=== PATIENT | male | born 1940 | race Caucasian/White ===

== ENCOUNTER 2016-07-26 11:26 | Inpatient (IN) | payer OTHER ==
[~2016-07-26] VITALS: Ht 167.6 cm; Wt 75.0 kg
[~2016-07-26 11:26] MED LIST: AZIT250T94 PO; D-ME473S18 PO; IBUP-1542 PO; [UNRECOGNIZED DRUG - REMARK]
--- NOTE | 2016-07-26 15:32 | ERA ---
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 4 days ago he went to sleep felt some tingling on the right side of his body and awoke with slurred speech and weakness to his right upper and right lower extremity. Family also observed the right facial droop. His son finally convinced him to come to the hospital today. He complains of minimal residual weakness of the right upper and right lower extremity but still has mild slurred speech and right facial droop. Denies headache or visual changes. No neck or back pain. No dizziness or gait difficulties. Denies chest pain or palpitations. No shortness of breath or cough. No abdominal pain, nausea, vomiting, diarrhea or constipation. No URI symptoms, rhinorrhea or odynophagia. No fevers or chills. ROS All systems reviewed and are negative except as per history of present illness. Medications Home Meds Reported Medications Cholecalciferol (Vitamin D3) 1,000 Unit Capsule, 1000 UNIT PO DAILY, CAP 07/26/16 Carvedilol* (Carvedilol*) 6.25 Mg Tablet, 6.25 MG PO BID, #60 TAB 07/26/16 Losartan Potassium* (Losartan Potassium*) 50 Mg Tablet, 50 MG PO DAILY, TAB 07/26/16 Discontinued Reported Medications [unknown htn med] No Conflict Check 08/19/13 Discontinued Scripts Dextromethorphan Hb-Promethazine Hcl (Promethazine DM Syrup) 473 Ml Syrup, 5 ML PO Q6H Y for COUGH, #4 OZ Prov:DYLAN KRISHNA MD 04/18/16 Ibuprofen* (Motrin*) 600 Mg Tab, 600 MG PO Q6, #15 TAB Prov:DYLAN KRISHNA MD 04/18/16 Azithromycin* (Zithromax*) 250 Mg Tablet, 250 MG PO .ZPACK DIRECTED, #6 TAB TAKE 500 MG (2 TABS) THE FIRST DAY THEN 250 MG (1 TAB) DAYS 2-5 Prov:DYLAN KRISHNA MD 04/18/16 Allergies Allergies: Coded Allergies: No Known Drug Allergies (Verified Allergy, Unknown, 07/26/16) PMhx/Soc Reviewed in chart. As per HPI. Lives with family. History of Surgery: Yes (HERNIA REPAIR/ VASECTOMY) Anesthesia Reaction: No Hx Neurological Disorder: No Hx Respiratory Disorders: No Hx Cardiac Disorders: Yes (Coronary artery disease, NSTEMI status post PCI. Hypertension.) Hx Psychiatric Problems: Yes Hx Miscellaneous Medical Probl: No Hx Alcohol Use: No Hx Substance Use: No Hx Tobacco Use: No FmHx No stroke or cancer Physical Exam Vitals Vital Signs Date Time Temp Pulse Resp B/P Pulse Ox O2 Delivery O2 Flow Rate FiO2 07/26/16 16:25 98.9 86 20 161/88 100 Room Air 07/26/16 11:30 98.1 59 18 144/90 90 Physical Exam Const: Alert, no acute distress. Head: Atraumatic Eyes: Pupils equal reactive to light, extraocular movements are intact. Normal Conjunctiva ENT: Normal External Ears, Nose and Mouth. Pharynx is clear. Mucous members are moist. No erythema or exudate. Neck: Full range of motion. Nontender. Full range of motion. Carotids 2+ bilaterally without bruits. Resp: Breath sounds are equal and clear to auscultation bilaterally. No rales rhonchi or wheezes. Cardio: Regular rate and rhythm, no murmurs, gallops or rubs. Abd: Soft, non tender, non distended. Normal bowel sounds Skin: No petechiae or rashes Back: No midline or flank tenderness Ext: No cyanosis, or edema Neur: Awake and alert. Mild right facial droop. Cranial nerves II through and VIII through XII are otherwise intact. Motor and sensory equal bilaterally. No pronator drift. Psych: Normal Mood and Affect. Patient does not appear anxious or depressed. Result Diagram: 07/26/16 1530 07/26/16 1530 Results 24 hrs Laboratory Tests Test 07/26/16 15:30 07/26/16 15:51 White Blood Count 8.010^3/ul Red Blood Count 4.0910^6/ul Hemoglobin 14.3g/dl Hematocrit 41.2% Mean Corpuscular Volume 100.7fl Mean Corpuscular Hemoglobin 35.0pg Mean Corpuscular Hemoglobin Concent 34.7g/dl Red Cell Distribution Width 12.1% Platelet Count 32081^3/UL Mean Platelet Volume 10.2fl Neutrophils % 67.8% Lymphocytes % 21.7% Monocytes % 8.1% Eosinophils % 1.6% Basophils % 0.5% Nucleated Red Blood Cells % 0.0/100WBC Neutrophils # 5.410^3/ul Lymphocytes # 1.710^3/ul Monocytes # 0.710^3/ul Eosinophils # 0.110^3/ul Basophils # 0.010^3/ul Nucleated Red Blood Cells # 0.010^3/ul Prothrombin Time 13.2Sec Prothrombin Time Ratio 1.0 INR International Normalized Ratio 1.00 Activated Partial Thromboplast Time 38.5Sec Sodium Level 140mmol/L Potassium Level 4.1mmol/L Chloride Level 100mmol/L Carbon Dioxide Level 28mmol/L Anion Gap 16 Blood Urea Nitrogen 20mg/dl Creatinine 1.13mg/dl Glucose Level 99mg/dl Calcium Level 9.4mg/dl Total Bilirubin 0.6mg/dl Direct Bilirubin 0.00mg/dl Indirect Bilirubin 0.6mg/dl Aspartate Amino Transf (AST/SGOT) 26IU/L Alanine Aminotransferase (ALT/SGPT) 26IU/L Alkaline Phosphatase 78IU/L Troponin I < 0.012ng/ml Total Protein 7.9g/dl Albumin 4.4g/dl Globulin 3.50g/dl Albumin/Globulin Ratio 1.25 Bedside Glucose 82mg/dL Current Medications Medications (Trade) Dose Ordered Sig/Aníbal Route PRN Reason Start Time Stop Time Status Last Admin Dose Admin Aspirin (Aspirin) 325 mg ONCE ONCE PO 07/26/16 17:30 07/26/16 17:31 DC 07/26/16 17:51 Carvedilol (Coreg) 6.25 mg BID PO 07/26/16 21:00 UNV Cholecalciferol (Vitamin D) 1,000 unit DAILY PO 07/27/16 09:00 UNV Losartan Potassium (Cozaar) 50 mg DAILY PO 07/27/16 09:00 UNV Aspirin (Halfprin) 81 mg DAILY PO 07/27/16 09:00 UNV Docusate Sodium (Colace) 100 mg BID PO 07/26/16 21:00 UNV Famotidine (Pepcid) 20 mg DAILY PO 07/27/16 09:00 UNV Acetaminophen (Tylenol Tab) 650 mg Q6H PRN PO PAIN AND OR ELEVATED TEMP 07/26/16 18:30 UNV Enoxaparin Sodium (Lovenox) 40 mg DAILY SC 07/27/16 09:00 UNV Ondansetron HCl (Zofran Inj) 4 mg ER BRIDGE PRN IV NAUSEA AND/OR VOMITING 07/26/16 18:30 07/27/16 18:29 Acetaminophen (Tylenol Tab) 650 mg ER BRIDGE PRN PO MILD PAIN/FEVER 07/26/16 18:30 07/27/16 18:29 RHYTHM STRIP INTERPRETATION: Time: 15:40. Sinus bradycardia. Ventricular rate 55. Occasional PVCs. Indication: Weakness. EKG: TIME: 15:50. Sinus bradycardia with first-degree AV block. GA interval 244 ms. QRS duration normal. Left axis deviation. Q waves in leads V1 and V2. No acute ST segment elevation or depression. No ectopy. EP Interpretation : Abnormal EKG. IMAGING: PROCEDURE: Noncontrast CT Head. CLINICAL INDICATION: Stroke. TECHNIQUE: Noncontrast CT of the head was obtained. The administered radiation dose was CTDI vol = 44.03 mGy, DLP = 720.23 mGy-cm. One or more of the following dose reduction techniques were used: Automated exposure control, Adjustment of the mA and/or kV according to patient size, or Use of iterative reconstruction technique. COMPARISON: There are no similar studies submitted for comparison. FINDINGS: There is mild to moderate generalized cerebral volume loss. There is mild periventricular hypoattenuation suggesting chronic microvascular ischemic changes. There are moderate vascular calcifications within the intracranial carotid arteries. There is encephalomalacia and subcortical gliosis within the right inferior frontal lobe likely related to prior contusions. There is no loss of whelan-white differentiation to suggest acute territorial infarction. There is no acute intracranial hemorrhage or extra-axial fluid collection. There is no mass effect. No midline shift is identified. The orbits are within normal limits. The paranasal sinuses are well aerated. No destructive osseous lesion is identified. IMPRESSION: 1. No loss of whelan-white differentiation to suggest acute territorial infarction. Consider CTA of the head/neck or noncontrast MRI of the brain as clinically warranted. 2. No acute intracranial hemorrhage or extra-axial fluid collection. 3. Mild to moderate generalized cerebral volume loss. 4. Mild chronic microvascular ischemic changes. 5. Chronic right frontal lobe encephalomalacia/gliosis from prior contusion. Further findings as detailed above. RPTAT: PP .Arvin Ba MD, Date Time Electronically viewed and signed by .Arvin Ba MD, on 07/26/2016 16:20 .F/ PROCEDURE: Chest x-ray CLINICAL INDICATION: Stroke TECHNIQUE: Chest single view COMPARISON: 08/18/2013 FINDINGS: The heart is normal in size. The pulmonary vessels are normal in caliber. The lungs are clear. The costophrenic angles are sharp. The visualized bony thorax is unremarkable. IMPRESSION: No acute cardiopulmonary disease. RPTAT: HH .Daron Tadeo MD, Date Time Electronically viewed and signed by .Daron Tadeo MD, on 07/26/2016 15:59 .W/ Procedures/MDM DOCUMENTS REVIEWED: ED nurse, prior ED, prior records MEDICAL DECISION MAKIN-year-old male with a history of hypertension, CAD, NSTEMI s/p PCI in 2013 ambulatory to the ED for evaluation of slurred speech and right-sided weakness. Labile hypertension. No cardiac dysrhythmia. No encephalopathy. Permissive hypertension. CT reveals no evidence of acute infarct or bleed. Aspirin given. Admit to telemetry for further workup including MRI, neurology consultation, carotid Dopplers and cardiac echo. Counseled patient and family regarding diagnosis, diagnostic results and plan for admission. CALLS/CONSULTS: Time 17:30, Dr. Pierson, Recommends admission to telemetry. PATIENT CARE TRANSITIONED: Time: 17:30, Dr. Pierson. Departure Diagnosis: Primary Impression: CVA (cerebral vascular accident) Qualified Code: I63.9 - Cerebrovascular accident (CVA), unspecified mechanism Additional Impression: Uncontrolled hypertension Condition: Serious CHELSEY MARRUFO MD Jul 26, 2016 15:32
--- NOTE | 2016-07-26 16:00 | RADRPT ---
PROCEDURE: Chest x-ray CLINICAL INDICATION: Stroke TECHNIQUE: Chest single view COMPARISON: 08/18/2013 FINDINGS: The heart is normal in size. The pulmonary vessels are normal in caliber. The lungs are clear. Th e costophrenic angles are sharp. The visualized bony thorax is unremarkable. IMPRESSION: No acute cardiopulmonary disease. RPTAT: HH .Daron Tadeo MD, Date Time Electronically viewed and signed by .Daron Tadeo MD, on 07/26/2016 15:59 .W/
[2016-07-26] MEDS ORDERED: LOSA50TA6 PO (16:05)
[2016-07-26] MEDS ORDERED: CARV6.2579 PO (16:06)
[2016-07-26] MEDS ORDERED: CHOL10009 PO (16:07)
[2016-07-26 16:09] LABS: ADD SCAN DIFF NO
[2016-07-26 16:13] LABS: BASOPHILS % 0.5 % (0.0-2.0); EOSINOPHILS # 0.1 10^3/ul (0.0-0.5); EOSINOPHILS % 1.6 % (0.0-7.0); HEMATOCRIT 41.2 % (42.0-52.0); HEMOGLOBIN 14.3 g/dl (14.0-18.0); LYMPHOCYTES # 1.7 10^3/ul (0.8-2.9); LYMPHOCYTES % 21.7 % (15.0-51.0); MEAN CORPUSCULAR HGB CONC 34.7 g/dl (32.0-37.0); MEAN CORPUSCULAR VOLUME 100.7 fl (82.0-101.0); MEAN PLATELET VOLUME 10.2 fl (7.4-10.4); MONOCYTE # 0.7 10^3/ul (0.3-0.9); MONOCYTES % 8.1 % (0.0-11.0); NEUTROPHIL # 5.4 10^3/ul (1.6-7.5); NEUTROPHILS % 67.8 % (39.0-77.0); PLATELET COUNT 232 10^3/UL (140-415); RED BLOOD COUNT 4.09 10^6/ul (4.70-6.10); RED CELL DISTRIBUTION WIDTH 12.1 % (11.5-14.5)
--- NOTE | 2016-07-26 16:21 | RADRPT ---
PROCEDURE: Noncontrast CT Head. CLINICAL INDICATION: Stroke. TECHNIQUE: Noncontrast CT of the head was obtained. The administered radiation dose was CTDI vol = 44.03 mGy, DLP = 720.23 mGy-cm. One or more of the following dose reduction techniques were used: Au tomated exposure control, Adjustment of the mA and/or kV according to patient size, or Use of iterat jennifer reconstruction technique. COMPARISON: There are no similar studies submitted for comparison. FINDINGS: There is mild to moderate generalized cerebral volume loss. There is mild periventricular hypoattenuation suggesting chronic microvascular ischemic changes. Th ere are moderate vascular calcifications within the intracranial carotid arteries. There is encephal omalacia and subcortical gliosis within the right inferior frontal lobe likely related to prior cont usions. There is no loss of whelan-white differentiation to suggest acute territorial infarction. There is no acute intracranial hemorrhage or extra-axial fluid collection. There is no mass effect. No midline shift is identified. The orbits are within normal limits. The paranasal sinuses are well aerated. No destructive osseous lesion is identified. IMPRESSION: 1. No loss of whelan-white differentiation to suggest acute territorial infarction. Consider CTA of t he head/neck or noncontrast MRI of the brain as clinically warranted. 2. No acute intracranial hemorrhage or extra-axial fluid collection. 3. Mild to moderate generalized cerebral volume loss. 4. Mild chronic microvascular ischemic changes. 5. Chronic right frontal lobe encephalomalacia/gliosis from prior contusion. Further findings as detailed above. RPTAT: PP .Arvin Ba MD, Date Time Electronically viewed and signed by .Arvin Ba MD, on 07/26/2016 16:20 .F/
[2016-07-26 16:25] LABS: PROTIME 13.2 Sec (12.2-14.2)
[2016-07-26 16:26] LABS: PARTIAL THROMBOPLASTIN TIME 38.5 Sec (25.0-35.0)
[2016-07-26 16:47] LABS: ALBUMIN 4.4 g/dl (3.3-4.9); CHLORIDE 100 mmol/L (97-110); SODIUM 140 mmol/L (135-144)
[2016-07-26 16:48] LABS: POTASSIUM 4.1 mmol/L (3.5-5.1)
[2016-07-26 16:50] LABS: ALBUMIN/GLOBULIN RATIO 1.25; ALKALINE PHOSPHATASE 78 IU/L (42-121); ANION GAP 16 (8-16); ASPARTATE AMINO TRANSFERASE 26 IU/L (15-46); BILIRUBIN,INDIRECT 0.6 mg/dl (0-1.1); BILIRUBIN,TOTAL 0.6 mg/dl (0.2-1.3); BLOOD UREA NITROGEN 20 mg/dl (7-20); CARBON DIOXIDE 28 mmol/L (21-31); CREATININE 1.13 mg/dl (0.61-1.24); TOTAL PROTEIN 7.9 g/dl (6.1-8.1)
[2016-07-26 16:51] LABS: ALANINE AMINOTRANSFERASE 26 IU/L (13-69); CALCIUM 9.4 mg/dl (8.4-10.2); GLUCOSE 99 mg/dl (70-220)
[2016-07-26 17:08] LABS: TROPONIN-I < 0.012 ng/ml (0.00-0.12)
[2016-07-26] MEDS ORDERED: ASPIRIN 325 MG TAB PO ONE (17:30)
[2016-07-26 18:10] VITALS: TEMP 97.7
[2016-07-26] MEDS ORDERED: ONDANSETRON 4 MG INJ IV PRN (18:30)
[2016-07-26] MEDS ORDERED: ACETAMINOPHEN 325 MG TAB PO PRN ×2 (18:30)
--- NOTE | 2016-07-26 19:05 | RADRPT ---
PROCEDURE: US Carotids. CLINICAL INDICATION: Stroke TECHNIQUE: Multiple sonographic of the carotid arteries were obtained utilizing whelan scale imaging . Color and Doppler imaging was performed. The images were reviewed on a PACS workstation. COMPARISON: No prior studies are available for comparison. FINDINGS: RIGHT: CCA53 cm/sec Prox ICA38 cm/sec Mid ICA31 cm/sec Dist ICA33 cm/sec ECA44 cm/sec ICA/CCA:0.7 LEFT: CCA47 cm/sec Prox ICA47 cm/sec Mid ICA60 cm/sec Dist ICA66 cm/sec ECA63 cm/sec ICA/CCA:1.4 Antegrade flow is seen within the vertebral arteries bilaterally. There is mild partially calcified carotid bulb plaque is present.. There is no evidence for hemodynamically significant stenosis or o cclusion is identified. IMPRESSION: 1. Mild bilateral carotid bulb plaque without evidence for hemodynamically significant stenosis - v alidated velocity measurements with angiographic measurements, velocity criteria are extrapolated fr om diameter data as defined by the Society of Radiologists in Ultrasound Consensus Conference Radiol ogy 2003; 229;340-346. This study does indirectly reference the measurement of the distal ICA diame ter as the denominator for stenosis measurement. 2. Antegrade flow seen within the vertebral arteries bilaterally. RPTAT: HMVK .Timothy Gomez MD, Date Time Electronically viewed and signed by .Timothy Gomez MD, MD on 07/26/2016 19:05 .K/
[2016-07-26 19:45] VITALS: BP 186/96; PULSE 54; RESP 18
[2016-07-26 20:07] VITALS: PULSE 54
[2016-07-26 21:00] VITALS: BP 186/96; RESP 18
[2016-07-26] MEDS: LOSARTAN 50 MG TAB PO SCH (21:00)
[2016-07-26] MEDS: DOCUSATE SODIUM 100 MG CAP PO SCH (21:00)
[2016-07-26] MEDS ORDERED: HYDROCHLOROTHIAZIDE 25 MG TAB PO ONE (21:00)
[2016-07-26 21:32] VITALS: BP 177/91
[2016-07-26 21:46] VITALS: Ht 167.6 cm; Wt 75.0 kg
--- NOTE | 2016-07-26 23:35 | HP ---
DATE OF ADMISSION: 07/26/2016 PRESENTING COMPLAINT: Slurred speech and right-sided weakness. HISTORY OF PRESENTING COMPLAINT: Mr. Holland Samson is a 76-year-old male, who was brought in today b y his son because he had an episode of slurred speech about 3 days ago, that associated with right-s ided facial weakness and right upper extremity numbness and weakness. The patient tells me that his symptoms lasted just about 24 hours and then completely resolved, and at this point, he reports nubia t he is completely back to his baseline. He is actually considering leaving the hospital without be ing admitted against medical advice. He tells me at this time, he has no symptoms and he is doing v omero well. I did explain to him that we have to admit him for a stroke workup, however. The patient reports that he had a similar episode about 4 years ago, and at that time his blood pressure was fo und to be elevated, and his blood pressure medications were adjusted, and he reports feeling better since. The patient feels that this episode is also secondary to the same and is requesting for us t o just adjust his blood pressure meds and he thinks he will be fine after that. PAST MEDICAL HISTORY: Positive for: 1. Coronary artery disease. 2. History of non-ST elevation myocardial infarction, status post percutaneous coronary interventio n. 3. Hypertension. PAST SURGICAL HISTORY: Positive for hernia repair and vasectomy. ALLERGIES: HE HAS NO KNOWN DRUG ALLERGIES. SOCIAL HISTORY: The patient denies alcohol, tobacco, or illicit drug use. FAMILY HISTORY: Noncontributory. REVIEW OF SYSTEMS: I did perform a 12-point review of systems, and basically pertinent findings are as noted in the HPI. PHYSICAL EXAMINATION VITAL SIGNS: Temperature 97.7, pulse 88, respirations 16, blood pressure 131/101, saturations 100% on room air. GENERAL: He is alert, he is oriented, he is comfortable, in no distress. HEENT: Head is normocephalic. There is a mild right-sided facial deficit, but he says this is sweatband drummer jose. Pupils were equal and reactive. Mucous membranes are moist. Posterior pharynx was clear of e rythema and exudate. NECK: Supple. CHEST: Clear to auscultation. CARDIOVASCULAR: S1 and 2 without added sounds or murmurs. ABDOMEN: Soft, nontender, nondistended, with normoactive bowel sounds. EXTREMITIES: The patient has no lower-extremity edema. NEUROLOGIC: There are no focal deficits, except a mild right facial droop. SKIN: Devoid of rash or jaundice. LABORATORY VALUES: Basically, a complete metabolic profile was completely normal. Troponin was neg ative x1. Hematology: He had a low hematocrit and a mildly-elevated MCH. Coag profile is unremark able. EKG showed sinus bradycardia with first-degree AV block with a rate of 53. IMAGING: He had a chest x-ray that showed no acute cardiopulmonary disease. CT scan of the brain s howed no loss of whelan-white differentiation to suggest acute territorial infarction, chronic right f rontal lobe encephalomalacia from prior contusion, [id number] generalized cerebral volume loss , mild chronic microvascular ischemic changes. ASSESSMENT: 1. Acute transient ischemic attack, with what looks like a second episode. 2. Uncontrolled hypertension, which precipitated #1. 3. History of coronary artery disease status post percutaneous coronary intervention in the past. 4. Mild bradycardia. PLAN OF CARE: 1. To admit for a stroke workup and optimization of his overall medical status. 2. Rule out acute coronary syndrome, obtain 2D echo, obtain carotid Doppler, check a lipid profile, TSH, hemoglobin A1c. We will adjust his blood pressure medicines for blood pressure control, add aspirin to his regimen, and use Lovenox and Pepcid for DVT prophylaxis. Further interventions will depend on his clinical course. For further information and clarification , please review the patient's chart and my orders. Dictated By: SHLOMO ARANDA MD, BA/ZHANNA Conf#: [id number] DID#: [id number]
[2016-07-26 23:55] VITALS: BP 166/88; RESP 18
--- NOTE | 2016-07-26 23:58 | RADRPT ---
PROCEDURE: MR Brain without contrast. CLINICAL INDICATION: CVA TECHNIQUE: An MRI of the brain was performed on a 1.5 magnolia scanner utilizing the following sequen domonique: Sagittal T1 weighted, axial T2 weighted, axial FLAIR, coronal GRE, and axial diffusion weighted with ADC mapping. COMPARISON: None FINDINGS: 9 mm focus of restricted diffusion within the left paramedian augie compatible with acute / early sub acute ischemic infarction . No significant mass effect or evidence of hemorrhagic transformation. Multiple sub centimeter foci of signal loss on gradient echo T2* weighted sequences within the augie, midbrain, left external capsule, and bilateral thalami and basal ganglia compatible with hemosideri n deposition/blood degradation products suggestive of multiple cavernous angiomas. Patchy periventricular and subcortical white matter T2 signal hyperintensity foci most compatible wi th sequelae of chronic microvascular ischemic injury. Prominence of the ventricles and subarachnoid spaces compatible with moderate cerebral and cerebellar volume loss . The posterior fossa contents, brainstem, seventh - eighth cranial nerve complexes, pituitary axis, o rbits, paranasal sinuses, and mastoid air cells are unremarkable. Normal flow voids are visible in the proximal intracranial arteries and dural sinuses, indicating pa tency. IMPRESSION: 1. 9 mm focus of restricted diffusion within the left paramedian augie compatible with acute / early subacute ischemic infarction. No significant mass effect, edema, or hemorrhagic transformation. 2. Multiple sub centimeter foci of signal loss on gradient echo and T2-weighted sequences and augie, midbrain, left external capsule, and bilateral thalami and basal ganglia suggestive of multiple cav ernous angiomas. 3. Moderate chronic microvascular ischemic changes in the deep white matter central cerebral and ce rebellar volume loss. RPTAT:AAJJ Physician Luis Date Time Electronically viewed and signed by Physician Luis on 07/26/2016 23:57 LINDA/
[2016-07-27] VITALS (10 sets, daily range): BP systolic 149–186; BP diastolic 85–99; PULSE 53–77; RESP 17–20
[2016-07-27 00:59] LABS: CREATINE KINASE 118 IU/L (23-200)
[2016-07-27 01:15] LABS: CK-MB 1.66 ng/ml (0.0-2.4); TROPONIN-I < 0.012 ng/ml (0.00-0.12)
[2016-07-27] MEDS: DOCUSATE SODIUM 100 MG CAP PO SCH ×2 (08:27→22:10)
[2016-07-27] MEDS: LOSARTAN 50 MG TAB PO SCH (08:28)
[2016-07-27] MEDS: FAMOTIDINE 20 MG TAB PO SCH (08:28)
[2016-07-27] MEDS: ASPIRIN (EC) 81 MG TAB PO SCH (08:28)
[2016-07-27] MEDS: CHOLECALCIFEROL 1,000 UNIT TAB PO SCH (08:28)
[2016-07-27] MEDS: ENOXAPARIN 40 MG/0.4 ML SYG SC SCH (08:34)
[2016-07-27 10:32] LABS: ADD SCAN DIFF NO
[2016-07-27] MEDS: ATORVASTATIN 40 MG TAB PO SCH (10:43)
[2016-07-27] MEDS: HYDROCHLOROTHIAZIDE 25 MG TAB PO SCH (10:43)
[2016-07-27 10:46] LABS: BASOPHILS % 0.3 % (0.0-2.0); EOSINOPHILS # 0.1 10^3/ul (0.0-0.5); EOSINOPHILS % 1.3 % (0.0-7.0); HEMATOCRIT 40.5 % (42.0-52.0); HEMOGLOBIN 13.8 g/dl (14.0-18.0); LYMPHOCYTES # 1.3 10^3/ul (0.8-2.9); LYMPHOCYTES % 22.6 % (15.0-51.0); MEAN CORPUSCULAR HEMOGLOBIN 33.9 pg (29.0-33.0); MEAN CORPUSCULAR HGB CONC 34.1 g/dl (32.0-37.0); MEAN CORPUSCULAR VOLUME 99.5 fl (82.0-101.0); MEAN PLATELET VOLUME 10.2 fl (7.4-10.4); MONOCYTE # 0.5 10^3/ul (0.3-0.9); MONOCYTES % 7.7 % (0.0-11.0); NEUTROPHILS % 68.1 % (39.0-77.0); PLATELET COUNT 214 10^3/UL (140-415); RED BLOOD COUNT 4.07 10^6/ul (4.70-6.10); WHITE BLOOD COUNT 5.9 10^3/ul (4.8-10.8)
[2016-07-27 11:08] LABS: TROPONIN-I 0.016 ng/ml (0.00-0.12)
[2016-07-27 11:09] LABS: CK-MB 1.81 ng/ml (0.0-2.4)
[2016-07-27 11:50] LABS: CHOL/HDL RATIO 2.6 RATIO
[2016-07-27] MEDS ORDERED: LOSARTAN 25 MG TAB PO ONE (12:30)
[2016-07-27 12:31] LABS: CALCIUM 9.3 mg/dl (8.4-10.2); CREATININE 1.18 mg/dl (0.61-1.24); MAGNESIUM 1.9 mg/dl (1.7-2.5); POTASSIUM 3.7 mmol/L (3.5-5.1)
[2016-07-27 13:20] LABS: THYROID STIMULATING HORMONE 1.59 MIU/L (0.465-4.680)
--- NOTE | 2016-07-27 13:20 | DS ---
DATE OF ADMISSION: 07/26/2016 DATE OF DISCHARGE: 07/27/2016 PRESENTING COMPLAINT: Right-sided facial droop and slurred speech. FINAL DIAGNOSES: 1. 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 The patient has no gross foc al deficits. 2. Multiple cavernous angiomas of incidental finding. 3. Hypertension with improved control. 4. Chronic normocytic anemia. 5. History of coronary artery disease status post PCI in the past. CONSULTS ON THE CASE: Neurologist, Dr. Robert Mrain, is yet to review patient, but patient w ould not be discharged until he has been reviewed and cleared by neurology. INTERVENTIONS: The patient had the followin. Chest x-ray that showed no acute cardiopulmonary disease. 2. A CT scan of the brain that showed no acute territorial infarction, no acute intracranial hemorr best, mild to moderate generalized cerebral volume loss, mild chronic microvascular ischemic changes and chronic right frontal lobe encephalomalacia/gliosis. 3. Then, the patient went on to have a brain MRI that showed a 9 mm focus compatible with an acute ischemic infarction in the left paramedian augie, multiple subcentimeter foci of signal loss the augie , midbrain, left external capsular, bilateral thalami and basal ganglia, suggestive of multiple cave rnous angiomas and moderate chronic microvascular ischemic changes. 3. The patient had a carotid Doppler study that showed mild carotid bulb plaque without evidence of hemodynamically significant stenosis. 4. He also had A 2D echo has been done, but again the official report is pending. SHORT HOSPITALIZATION COURSE: Full details of this patient's admission is in the chart for review. In summary, he came into the ER, brought in by his family, with report of slurred speech and right- sided facial droop and weakness 3 days prior to presentation. The patient did not want to come to [facility], but was brought in by his family and as such every point throughout his hospitalizatio n was constantly requesting to be discharged, which is again the same as of this morning. He report s doing well, having no focal deficits having no symptoms. He has no new complaints. He is actuall y yet to be seen by the neurologist. Also, his echocardiogram is pending. His lipid profile was al so pending as well as a urinalysis. The patient is not cleared for discharge until these have been reviewed. Other than that, he seems to be stable condition. Blood pressure is better controlled an d if no further contraindications, the patient will be discharged home in safe and stable condition. DISCHARGE MEDICATIONS: As follows: 1. His Coreg was switched to metoprolol at a dose of 25 mg p.o. b.i.d. because of bradycardia. 2. His Losartan was increased to 100 mg p.o. daily. 3. Hydrochlorothiazide was also added to his regimen for better blood pressure control. 4. He was also started on aspirin 81 mg daily. 5. He was started on Lipitor 40 mg p.o. at bedtime. If any new findings or changes are made, an addendum will be made to this dictation. Other than nubia t, the patient will be discharged in stable condition if cleared by neurology on a low cholesterol, low fat diet, to follow up as soon as possible with his primary care physician. Regarding the cavernous malformations on the CAT scan, the patient is recommended to undergo serial brain imaging yearly if recommended by his primary doctor to closely monitor this. This was reviewe d over the telephone with neurosurgeon, Dr. Mukesh Palumbo. I have spoken with the patient in [facility]. I will return to speak with the patient's family and will also review the patient again once he has been seen by neurology and all his labs are complete. So far, time spent on discharge planning has been more than 45 minutes. For further information and clarification, please review the patient's chart. Dictated By: SHLOMO ARANDA MD, BA/ZHANNA Conf#: [id number] DID#: [id number]
--- NOTE | 2016-07-27 13:23 | RADRPT ---
Echocardiogram Report Patient Name: TATYANA ZHOU Gender: Male Date: 1940 Study Date: 27-Jul-2016 Hotel Assistant Manager: Brant Holman [facility] Location: 506 Ref. Physician: SHLOMO ARANDA Quality: Good Procedures: Transthoracic echocardiogram with complete 2D, M-Mode, and doppler examination. Indications: Cerebrovascular Accident. 2D/M Mode Doppler Measurement Value Normal Ranges Measurement Value Normal Ranges LVIDd 2D 4.5 3.5 - 5.6 cm AV Peak Florencio 1.2 m/sec LVIDs 2D 3.2 2.1 - 4.1 cm AV Peak PG 5.7 mmHg LVPWd 2D 0.9 0.6 - 1.1 cm LVOT Peak Florencio 0.7 m/sec IVSd 2D 1.0 0.6 - 1.1 cm LVOT Peak PG 1.9 mmHg AoR Diam 2D 3.3 2.0 - 3.7 cm MV E Peak Florencio 0.4 m/sec EDV 2D 91.6 cm3 MV A Peak Florencio 0.7 m/sec ESV 2D 31.4 cm3 MV E/A 0.6 LA Dimen 2D 4.0 2.3 - 4.0 cm MV Decel Time 613 msec MV Decel [place] 1 MV E/A 0.6 TR Peak Florencio 2.2 m/sec TR Peak PG 19.8 mmHg RVSP 23.0 mmHg Findings Left Ventricle: Normal left ventricular systolic function. Normal left ventricular cavity size. Normal left ventricular wall thickness. Ejection fraction is visually estimated at 60 %. Tissue Doppler/Mitral Doppler indices are consistent with impaired relaxation (Stage I diastolic dysfunction). Right Ventricle: Normal right ventricular size. Normal right ventricular systolic function. Left Atrium: Upper limit of normal left atrial size. Right Atrium: The right atrium is normal in size. Mitral Valve: Mitral valve leaflets appear mildly thickened. Trace mitral regurgitation. Aortic Valve: No significant aortic stenosis or insufficiency. Aortic cusps appear mildly calcified. Trace aortic valve regurgitation. Tricuspid Valve: Normal appearance and function of the tricuspid valve with trace physiologic regurgitation. Estimated peak PA systolic pressure 23 mmHg. Pulmonic Valve: Normal pulmonic valve appearance. Pericardium: Normal pericardium with no significant pericardial effusion. Aorta: Normal aortic root. IVC: Normal size and normal respiratory collapse consistent with normal right atrial pressure. Conclusions 1.Normal left ventricular systolic function. Normal left ventricular cavity size. Normal left ventricular wall thickness. Ejection fraction is visually estimated at 60 %. Tissue Doppler/Mitral Doppler indices are consistent with impaired relaxation (Stage I diastolic dysfunction). 2.Normal right ventricular size. Normal right ventricular systolic function. 3.Upper limit of normal left atrial size. 4.The right atrium is normal in size. 5.No significant valvular stenosis or regurgitation seen. 6.Normal pericardium with no significant pericardial effusion. Electronically Signed By: Timothy Thompson 27-Jul-2016 13:21:36 -0700 Patient Name: TATYANA ZHOU Study Date: 27-Jul-2016 [id number]
[2016-07-27] MEDS ORDERED: METO-448 PO (14:30)
[2016-07-27] MEDS ORDERED: ATOR40TA68 PO (14:30)
[2016-07-27] MEDS ORDERED: DOCU-216 PO (14:30)
[2016-07-27] MEDS ORDERED: HYD25 PO (14:30)
[2016-07-27] MEDS ORDERED: LOSA100T7 PO (14:30)
[2016-07-27] MEDS ORDERED: ASPI-664 PO (14:30)
--- NOTE | 2016-07-27 14:32 | PDOCDIS ---
Discharge Instructions DIAGNOSIS Discharge Diagnosis: Acute stroke CONDITION Patient Condition: Stable HOME CARE INSTRUCTIONS: Diet Instructions: Low Fat /Cholesterol ACTIVITY: Activity Restrictions: Slowly Increase Activity Rest between Activity FOLLOW UP/APPOINTMENTS Appointments Followup with your primary doctor within the next 1 weeks. If you don't have one please let someone know, we can give you resources that may help you pick one. You may also call your insurance company to assign one to you. Review your medication list with your nurse before leaving and if you need new prescriptions please let your nurse know. I may have made changes to your home medications or given you new prescriptions , please let your primary doctor know as well. Stay compliant with your medications and report any side effects to your PCP or pharmacist. Return to the ER if you have any concerns and cannot reach your doctors or call your insurance company, they usually have a nurse that can help you. REFERRALS Other Referrals Name, Degree: Rob Enriquez MD Specialty: Ear Nose Throat Comments: Office Address: [address] [place] [address] Office Office Area Secretary: Status: Courtesy Department: Surgery ENT SHLOMO ARANDA Jul 27, 2016 14:32
--- NOTE | 2016-07-27 20:42 | CONS ---
DATE OF ADMISSION: 07/26/2016 DATE OF CONSULTATION: 07/27/2016 TYPE OF CONSULTATION: Neurology. Thank you, Dr. Montejo, for your kind referral for evaluation of CVA. HISTORY OF PRESENT ILLNESS: The patient is a 76-year-old gentleman with history of coronary artery disease, myocardial infarction, as well as hypertension, who about 3 days ago had an episode of slur red speech with right facial weakness and right upper extremity weakness and numbness. The patient' s symptoms have resolved. ALLERGIES: NONE. SOCIAL HISTORY: No alcohol, tobacco, drug use. FAMILY HISTORY: Noncontributory. The patient's MRI of the brain shows presence of acute ischemic lacunar in the left augie about 9 mm in size, also multiple subcentimeter foci of signal loss on gradient echo and T2 weighted sequences in augie, midbrain, external capsule, bilateral thalami, and basal ganglia, suggestive of multiple sm all cavernous angiomas. Carotid ultrasound did not show any hemodynamically significant stenosis. The patient's labs show essentially normal CBC, comprehensive metabolic panel, normal B12, TSH, LDL 83, cholesterol 157, normal PT 13, PTT 38. Patient had an EKG. It shows sinus rhythm. Echocardiogram showed ejection fraction of 60. MEDICATIONS: Currently, the patient is on: 1. Losartan. 2. Lopressor. 3. Hydrochlorothiazide. 4. Lipitor 40 mg. 5. Vitamin D. 6. Aspirin. 7. Pepcid. 8. Lovenox for DVT prevention. REVIEW OF SYSTEMS: All pertinent positives included in the above history of present illness. PHYSICAL EXAMINATION: VITAL SIGNS: Today, Temperature 97.9, pulse 77, respirations 19, blood pressure 186/99. GENERAL: Not in acute distress, lying in bed. HEENT: Normocephalic, atraumatic head. NECK: No carotid bruits. No thyromegaly. LUNGS: Clear to auscultation bilaterally. CARDIAC: Normal cardiac rhythm and sounds. ABDOMEN: Soft, nontender. EXTREMITIES: No cyanosis, clubbing, or edema. NEUROLOGIC: He is awake, alert, and oriented x3, with fluent speech. Cranial nerve examination bartolo ws intact visual delgado bilaterally. Pupils sluggish, about 2 mm bilaterally. Extraocular movement s intact without nystagmus. Minimally-asymmetrical face with right nasolabial fold flattening, but no definite weakness when he smiles or grimaces. Normal facial sensation. Tongue is in midline. P alate elevates symmetrically. Motor strength examination preserved in all extremities. Normal bulk , tone, and strength. Sensory examination intact to light touch and pain. Deep tendon reflexes 2+ throughout. Downgoing toes bilaterally. Coordination preserved on [id number] testing No dysm etria or tremor. No problem ambulating according to the patient, though I did not walk him. IMPRESSION: Acute ischemic stroke of about 3 days' duration, clinically resolved. The patient with history of hypertension and coronary artery disease. Keep patient euglycemic, normotensive. Dain nue aspirin and statin. It is okay for patient to be discharged. Thank you very much for this interesting consult. Dictated By: PAOLO HORN/ZHANNA Conf#: [id number] DID#: [id number]
[2016-07-27] MEDS: METOPROLOL 25 MG TAB PO SCH (22:11)
[2016-07-28] VITALS (11 sets, daily range): BP systolic 129–170; BP diastolic 61–84; PULSE 48–70; RESP 20
[2016-07-28] MEDS ORDERED: LOSARTAN 50 MG TAB PO SCH (09:00)
[2016-07-28] MEDS: METOPROLOL 25 MG TAB PO SCH (09:00)
[2016-07-28 09:13] LABS: ADD SCAN DIFF NO
[2016-07-28 09:15] LABS: BASOPHILS % 0.4 % (0.0-2.0); EOSINOPHILS # 0.1 10^3/ul (0.0-0.5); EOSINOPHILS % 0.7 % (0.0-7.0); HEMATOCRIT 42.7 % (42.0-52.0); HEMOGLOBIN 14.5 g/dl (14.0-18.0); LYMPHOCYTES # 1.5 10^3/ul (0.8-2.9); LYMPHOCYTES % 18.3 % (15.0-51.0); MEAN CORPUSCULAR HEMOGLOBIN 33.9 pg (29.0-33.0); MEAN CORPUSCULAR VOLUME 99.8 fl (82.0-101.0); MONOCYTE # 0.6 10^3/ul (0.3-0.9); MONOCYTES % 6.5 % (0.0-11.0); NEUTROPHIL # 6.2 10^3/ul (1.6-7.5); NEUTROPHILS % 73.7 % (39.0-77.0); PLATELET COUNT 233 10^3/UL (140-415); RED BLOOD COUNT 4.28 10^6/ul (4.70-6.10); RED CELL DISTRIBUTION WIDTH 12.1 % (11.5-14.5); WHITE BLOOD COUNT 8.4 10^3/ul (4.8-10.8)
[2016-07-28] MEDS: ASPIRIN (EC) 81 MG TAB PO SCH (09:20)
[2016-07-28] MEDS: ATORVASTATIN 40 MG TAB PO SCH (09:20)
[2016-07-28] MEDS: FAMOTIDINE 20 MG TAB PO SCH (09:20)
[2016-07-28] MEDS: DOCUSATE SODIUM 100 MG CAP PO SCH ×2 (09:20→21:20)
[2016-07-28] MEDS: CHOLECALCIFEROL 1,000 UNIT TAB PO SCH (09:20)
[2016-07-28] MEDS: HYDROCHLOROTHIAZIDE 25 MG TAB PO SCH (09:20)
[2016-07-28] MEDS: ENOXAPARIN 40 MG/0.4 ML SYG SC SCH (09:23)
[2016-07-28 09:25] LABS: POTASSIUM 4.1 mmol/L (3.5-5.1)
[2016-07-28 09:28] LABS: CREATININE 1.62 mg/dl (0.61-1.24)
[2016-07-28 09:29] LABS: CALCIUM 9.6 mg/dl (8.4-10.2)
--- NOTE | 2016-07-28 11:59 | PN ---
Date/Time of Note Date/Time of Note DATE: 07/28/16 TIME: 11:47 Assessment/Plan VTE Prophylaxis VTE Prophylaxis Intervention: ambulation, SCD's Lines/Catheters IV Catheter Type (from [facility]): Peripheral IV Urinary Cath still in place: No Assessment/Plan Assessment/Plan 1. 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 The patient has no gross focal deficits. 2. Multiple cavernous angiomas of incidental finding. 3. Hypertension with improved control. 4. Chronic normocytic anemia. 5. History of coronary artery disease status post PCI in the past. 6. Severe asymptomatic bradycardia while sleeping PLAN: hold discharge for now Cardiology consult pending, f/u recs. Screen for electrolyte deficits TSH and echo reviewed Hold all AV jorge blocking agents Continue supportive care PROPHYLAXIS: scds / pepcid Subjective 24 Hr Interval Summary Free Text/Dictation Patient seen and examined. Patient's discharge was held yesterday because he became severely bradycardic while sleeping. MECHANICAL PROJECT MANAGER was called. He reports feeling well, states he was just sleeping and had no symptoms when MECHANICAL PROJECT MANAGER was called. He has no new symptoms. He's still desiring discharge today Exam/Review of Systems Vital Signs Vitals Vital Signs Date Time Temp Pulse Resp B/P Pulse Ox O2 Delivery O2 Flow Rate FiO2 07/28/16 11:26 97.9 54 170/84 98 07/28/16 04:30 20 07/26/16 19:45 Room Air Intake and Output 07/27/16 07/27/16 07/28/16 15:00 23:00 07:00 Intake Total 1800 ml 400 ml Balance 1800 ml 400 ml Results Result Diagram: 07/28/1690407/28/16904 Results 24 hrs Laboratory Tests Test 07/28/16 02:11 07/28/16 09:05 Bedside Glucose 114 White Blood Count 8.4 # Red Blood Count 4.28 L Hemoglobin 14.5 Hematocrit 42.7 Mean Corpuscular Volume 99.8 Mean Corpuscular Hemoglobin 33.9 H Mean Corpuscular Hemoglobin Concent 34.0 Red Cell Distribution Width 12.1 Platelet Count 233 Mean Platelet Volume 10.0 Neutrophils % 73.7 Lymphocytes % 18.3 Monocytes % 6.5 Eosinophils % 0.7 Basophils % 0.4 Nucleated Red Blood Cells % 0.0 Neutrophils # 6.2 Lymphocytes # 1.5 Monocytes # 0.6 Eosinophils # 0.1 Basophils # 0.0 Nucleated Red Blood Cells # 0.0 Sodium Level 140 Potassium Level 4.1 Chloride Level 99 Carbon Dioxide Level 27 Anion Gap 18 H Blood Urea Nitrogen 36 #H Creatinine 1.62 H Glucose Level 134 Calcium Level 9.6 Medications Medications Current Medications Cholecalciferol (Vitamin D) 1,000 unit DAILY PO Last administered on 07/28/16 09:20; Admin Dose 1,000 UNIT; Start 07/27/16 at 09:00 Aspirin (Halfprin) 81 mg DAILY PO Last administered on 07/28/16 09:20; Admin Dose 81 MG; Start 07/27/16 at 09:00 Docusate Sodium (Colace) 100 mg BID PO Last administered on 07/28/16 09:20; Admin Dose 100 MG; Start 07/26/16 at 21:00 Famotidine (Pepcid) 20 mg DAILY PO Last administered on 07/28/16 09:20; Admin Dose 20 MG; Start 07/27/16 at 09:00 Acetaminophen (Tylenol Tab) 650 mg Q6H PRN PO PAIN AND OR ELEVATED TEMP; Start 07/26/16 at 18:30 Enoxaparin Sodium (Lovenox) 40 mg DAILY SC Last administered on 07/28/16 09:23 ; Admin Dose 40 MG; Start 07/27/16 at 09:00 Hydrochlorothiazide (Hydrochlorothiazide) 25 mg DAILY PO Last administered on 09:20; Admin Dose 25 MG; Start 07/27/16 at 10:00 Atorvastatin Calcium (Lipitor) 40 mg DAILY PO Last administered on 07/28/16 09 :20; Admin Dose 40 MG; Start 07/27/16 at 10:00 Losartan Potassium (Cozaar) 100 mg DAILY PO Last administered on 07/28/16 09: 20; Admin Dose 100 MG; Start 07/28/16 at 09:00 Hydralazine HCl (Apresoline) 10 mg Q6H PRN IV sbp>160mmhg; Start 07/27/16 at 12 :30 SHLOMO ARANDA Jul 28, 2016 11:58
[2016-07-28 12:15] LABS: PHOSPHORUS 5.7 mg/dl (2.5-4.9)
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
[2016-07-28 14:49] LABS: ADD UMIC NO; URINE BILIRUBIN (Dip) NEGATIVE (NEGATIVE); URINE BLOOD (Dip) NEGATIVE (NEGATIVE); URINE COLOR LT. YELLOW (YELLOW); URINE GLUCOSE (Dip) NEGATIVE (NEGATIVE); URINE KETONES (Dip) NEGATIVE (NEGATIVE); URINE LEUKOCYTE ESTERASE (Dip) NEGATIVE (NEGATIVE); URINE NITRITE (Dip) NEGATIVE (NEGATIVE); URINE TOTAL PROTEIN (Dip) NEGATIVE (NEGATIVE); URINE UROBILINOGEN (Dip) 0.2 E.U./dL (0.1-1.0)
[2016-07-28] MEDS ORDERED: SOD CHLORIDE 0.9% 1,000 ML IV SCH (15:00)
[2016-07-28 15:26] LABS: BARBITURATES Negative (NEGATIVE); BENZODIAZEPINES Negative (NEGATIVE); CANNABINOIDS Negative (NEGATIVE)
[2016-07-28 15:27] LABS: COCAINE Negative (NEGATIVE); OPIATES Negative (NEGATIVE)
[2016-07-28] MEDS: AMLODIPINE 2.5 MG TAB PO SCH (21:20)
[2016-07-29] VITALS (11 sets, daily range): BP systolic 125–174; BP diastolic 64–80; PULSE 57–66; RESP 18–20
[2016-07-29] MEDS: ASPIRIN (EC) 81 MG TAB PO SCH (09:53)
[2016-07-29] MEDS: DOCUSATE SODIUM 100 MG CAP PO SCH ×2 (09:53→20:08)
[2016-07-29] MEDS: ATORVASTATIN 40 MG TAB PO SCH (09:53)
[2016-07-29] MEDS: FAMOTIDINE 20 MG TAB PO SCH (09:53)
[2016-07-29] MEDS: CHOLECALCIFEROL 1,000 UNIT TAB PO SCH (09:53)
[2016-07-29] MEDS: AMLODIPINE 2.5 MG TAB PO SCH ×2 (09:53→20:09)
[2016-07-29] MEDS: ENOXAPARIN 40 MG/0.4 ML SYG SC SCH (09:54)
--- NOTE | 2016-07-29 10:18 | PN ---
Date/Time of Note Date/Time of Note DATE: 07/29/16 TIME: 10:16 Assessment/Plan VTE Prophylaxis VTE Prophylaxis Intervention: SCD's Lines/Catheters [facility] Saline Lock Urinary Cath still in place: No Assessment/Plan Assessment/Plan 10.2 second pause Acute CVA Coronary artery disease Preserved ejection fraction Hypertension -Patient admitted with acute CVA and had a 10.2 second pause 2 days back. He did have his beta-blockers adjusted, but patient only on Lopressor 25 mg p.o. twice daily. Would hold any AV jorge blocking agents, check TSH, continue telemetry monitoring. Patient will likely need pacemaker. I did have an extensive discussion with the patient as well as the son over the phone. Patient unsure if he wants to stay in the hospital and wants to leave AGAINST MEDICAL ADVICE. I did discuss the risks of his pause, including the risk of . Awaiting the patient's decision. - sw family that would most likely need a pacer > they may consider it but thery are not completely sure as of yet - will discuss further with family again and encourage the pacer Subjective 24 Hr Interval Summary Free Text/Dictation THE PATIENT WITH NO PAUSES OVERNIGHT Exam/Review of Systems Vital Signs Vitals Vital Signs Date Time Temp Pulse Resp B/P Pulse Ox O2 Delivery O2 Flow Rate FiO2 07/29/16 08:19 57 07/29/16 04:23 98.4 20 125/70 98 07/26/16 19:45 Room Air Intake and Output 07/28/16 07/28/16 07/29/16 15:00 23:00 07:00 Intake Total 800 ml 400 ml Balance 800 ml 400 ml Results Result Diagram: 07/28/1690407/28/16904 Results 24 hrs Laboratory Tests Test 07/28/16 12:28 Urine Opiates Screen Negative Urine Barbiturates Negative Urine Amphetamines Screen Negative Urine Benzodiazepines Screen Negative Urine Cocaine Screen Negative Urine Cannabinoids Negative Medications Medications Current Medications Cholecalciferol (Vitamin D) 1,000 unit DAILY PO Last administered on 07/29/16 09:53; Admin Dose 1,000 UNIT; Start 07/27/16 at 09:00 Aspirin (Halfprin) 81 mg DAILY PO Last administered on 07/29/16 09:53; Admin Dose 81 MG; Start 07/27/16 at 09:00 Docusate Sodium (Colace) 100 mg BID PO Last administered on 07/29/16 09:53; Admin Dose 100 MG; Start 07/26/16 at 21:00 Famotidine (Pepcid) 20 mg DAILY PO Last administered on 07/29/16 09:53; Admin Dose 20 MG; Start 07/27/16 at 09:00 Acetaminophen (Tylenol Tab) 650 mg Q6H PRN PO PAIN AND OR ELEVATED TEMP; Start 07/26/16 at 18:30 Enoxaparin Sodium (Lovenox) 40 mg DAILY SC Last administered on 07/29/16 09:54 ; Admin Dose 40 MG; Start 07/27/16 at 09:00 Atorvastatin Calcium (Lipitor) 40 mg DAILY PO Last administered on 07/29/16 09 :53; Admin Dose 40 MG; Start 07/27/16 at 10:00 Hydralazine HCl (Apresoline) 10 mg Q6H PRN IV sbp>160mmhg; Start 07/27/16 at 12 :30 Amlodipine Besylate (Norvasc) 2.5 mg BID PO Last administered on 07/29/16 09: 53; Admin Dose 2.5 MG; Start 07/28/16 at 21:00 MICHAEL HOLT MD Jul 29, 2016 10:18
[2016-07-29 10:58] LABS: ADD SCAN DIFF NO
[2016-07-29 11:08] LABS: POTASSIUM 3.4 mmol/L (3.5-5.1)
[2016-07-29 11:11] LABS: CREATININE 1.4 mg/dl (0.61-1.24)
[2016-07-29 11:12] LABS: CALCIUM 9.2 mg/dl (8.4-10.2)
[2016-07-29 11:19] LABS: BASOPHILS % 0.6 % (0.0-2.0); EOSINOPHILS # 0.1 10^3/ul (0.0-0.5); EOSINOPHILS % 0.8 % (0.0-7.0); HEMATOCRIT 42.1 % (42.0-52.0); HEMOGLOBIN 14.4 g/dl (14.0-18.0); LYMPHOCYTES # 1.9 10^3/ul (0.8-2.9); LYMPHOCYTES % 28.5 % (15.0-51.0); MEAN CORPUSCULAR HGB CONC 34.2 g/dl (32.0-37.0); MEAN CORPUSCULAR VOLUME 99.5 fl (82.0-101.0); MEAN PLATELET VOLUME 10.4 fl (7.4-10.4); MONOCYTE # 0.6 10^3/ul (0.3-0.9); MONOCYTES % 9.4 % (0.0-11.0); NEUTROPHILS % 60.4 % (39.0-77.0); PLATELET COUNT 236 10^3/UL (140-415); RED BLOOD COUNT 4.23 10^6/ul (4.70-6.10); RED CELL DISTRIBUTION WIDTH 12.1 % (11.5-14.5); WHITE BLOOD COUNT 6.6 10^3/ul (4.8-10.8)
--- NOTE | 2016-07-29 13:59 | PN ---
Date/Time of Note Date/Time of Note DATE: 07/29/16 TIME: 13:54 Assessment/Plan VTE Prophylaxis VTE Prophylaxis Intervention: SCD's Lines/Catheters [facility] Saline Lock Urinary Cath still in place: No Assessment/Plan Assessment/Plan 1. 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 The patient has no gross focal deficits. 2. Multiple cavernous angiomas of incidental finding. 3. Hypertension with improved control. 4. Chronic normocytic anemia. 5. History of coronary artery disease status post PCI in the past. 6. Severe asymptomatic bradycardia while sleeping with 10.2 sec pause PLAN: Appreciate Cardiology recs, patient needs pacemaker, Can get it on Sunday Patient still desiring discharge, will have to leave AMA if not cleared by Cardio Hold all AV jorge blocking agents Continue supportive care PROPHYLAXIS: scds / pepcid Subjective 24 Hr Interval Summary Free Text/Dictation * Patient feels well * No further pauses on tele * Patient with mildly nick HR Exam/Review of Systems Vital Signs Vitals Vital Signs Date Time Temp Pulse Resp B/P Pulse Ox O2 Delivery O2 Flow Rate FiO2 07/29/16 12:16 60 07/29/16 08:00 97.5 18 140/64 99 Room Air Intake and Output 07/28/16 07/28/16 07/29/16 14:59 22:59 06:59 Intake Total 800 ml 400 ml Balance 800 ml 400 ml Exam GENERAL: He is alert, he is oriented, he is comfortable, in no distress. HEENT: Head is normocephalic. Mild right-sided facial deficit, resolved. Pupils were equal and reactive. Mucous membranes are moist. Posterior pharynx was clear of erythema and exudate. NECK: Supple. CHEST: Clear to auscultation. CARDIOVASCULAR: S1 and 2 without added sounds or murmurs. ABDOMEN: Soft, nontender, nondistended, with normoactive bowel sounds. EXTREMITIES: The patient has no lower-extremity edema. NEUROLOGIC: There are no focal deficits, except a mild right facial droop. SKIN: Devoid of rash or jaundice. Results Result Diagram: 07/29/16 1015 07/29/16 1015 Results 24 hrs Laboratory Tests Test 07/29/16 10:15 White Blood Count 6.6 # Red Blood Count 4.23 L Hemoglobin 14.4 Hematocrit 42.1 Mean Corpuscular Volume 99.5 Mean Corpuscular Hemoglobin 34.0 H Mean Corpuscular Hemoglobin Concent 34.2 Red Cell Distribution Width 12.1 Platelet Count 236 Mean Platelet Volume 10.4 Neutrophils % 60.4 Lymphocytes % 28.5 Monocytes % 9.4 Eosinophils % 0.8 Basophils % 0.6 Nucleated Red Blood Cells % 0.0 Neutrophils # 4.0 Lymphocytes # 1.9 Monocytes # 0.6 Eosinophils # 0.1 Basophils # 0.0 Nucleated Red Blood Cells # 0.0 Sodium Level 135 Potassium Level 3.4 L Chloride Level 96 L Carbon Dioxide Level 29 Anion Gap 13 Blood Urea Nitrogen 35 H Creatinine 1.40 H Glucose Level 84 # Calcium Level 9.2 Medications Medications Current Medications Cholecalciferol (Vitamin D) 1,000 unit DAILY PO Last administered on 07/29/16 09:53; Admin Dose 1,000 UNIT; Start 07/27/16 at 09:00 Aspirin (Halfprin) 81 mg DAILY PO Last administered on 07/29/16 09:53; Admin Dose 81 MG; Start 07/27/16 at 09:00 Docusate Sodium (Colace) 100 mg BID PO Last administered on 07/29/16 09:53; Admin Dose 100 MG; Start 07/26/16 at 21:00 Famotidine (Pepcid) 20 mg DAILY PO Last administered on 07/29/16 09:53; Admin Dose 20 MG; Start 07/27/16 at 09:00 Acetaminophen (Tylenol Tab) 650 mg Q6H PRN PO PAIN AND OR ELEVATED TEMP; Start 07/26/16 at 18:30 Enoxaparin Sodium (Lovenox) 40 mg DAILY SC Last administered on 07/29/16 09:54 ; Admin Dose 40 MG; Start 07/27/16 at 09:00 Atorvastatin Calcium (Lipitor) 40 mg DAILY PO Last administered on 07/29/16 09 :53; Admin Dose 40 MG; Start 07/27/16 at 10:00 Hydralazine HCl (Apresoline) 10 mg Q6H PRN IV sbp>160mmhg; Start 07/27/16 at 12 :30 Amlodipine Besylate (Norvasc) 2.5 mg BID PO Last administered on 07/29/16 09: 53; Admin Dose 2.5 MG; Start 07/28/16 at 21:00 SHLOMO ARANDA Jul 29, 2016 13:59
[2016-07-30] VITALS (9 sets, daily range): BP systolic 138–177; BP diastolic 70–83; PULSE 58–78; RESP 18–20
--- NOTE | 2016-07-30 07:48 | PN ---
Date/Time of Note Date/Time of Note DATE: 07/30/16 TIME: 07:45 Assessment/Plan VTE Prophylaxis VTE Prophylaxis Intervention: ambulation, SCD's Lines/Catheters IV [facility] Saline Lock Urinary Cath still in place: No Assessment/Plan Assessment/Plan 1. 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 The patient has no gross focal deficits. 2. Multiple cavernous angiomas of incidental finding. 3. Hypertension with improved control. 4. Chronic normocytic anemia. 5. History of coronary artery disease status post PCI in the past. 6. Severe asymptomatic bradycardia while sleeping with 10.2 sec pause 7. Abd mass (likely soft tissue vs VALDEMAR) : very concerning to patient PLAN: Appreciate Cardiology recs, Possible Pacemaker placement today if Dr Marino can do it Continue to Hold all AV jorge blocking agents F/u soft tss USS report Continue supportive care PROPHYLAXIS: scds / pepcid Exam/Review of Systems Vital Signs Vitals Vital Signs Date Time Temp Pulse Resp B/P Pulse Ox O2 Delivery O2 Flow Rate FiO2 07/30/16 04:00 58 07/30/16 04:00 97.8 18 147/74 95 Room Air Exam Constitutional: alert, oriented, No distress Head: atraumatic, normocephalic Eyes: PERRL Neck: supple Respiratory: clear to auscultation, normal air movement Cardiovascular: regular rate and rhythm, No murmurs/extra sounds Gastrointestinal: bowel sounds, other (R sided firm subcutaneous mass), soft Extremities: No edema Neurological: nl mental status, nl speech, nl strength, No focal weakness Results Result Diagram: 07/29/16 1015 07/29/16 1015 Results 24 hrs Laboratory Tests Test 07/29/16 10:15 White Blood Count 6.6 # Red Blood Count 4.23 L Hemoglobin 14.4 Hematocrit 42.1 Mean Corpuscular Volume 99.5 Mean Corpuscular Hemoglobin 34.0 H Mean Corpuscular Hemoglobin Concent 34.2 Red Cell Distribution Width 12.1 Platelet Count 236 Mean Platelet Volume 10.4 Neutrophils % 60.4 Lymphocytes % 28.5 Monocytes % 9.4 Eosinophils % 0.8 Basophils % 0.6 Nucleated Red Blood Cells % 0.0 Neutrophils # 4.0 Lymphocytes # 1.9 Monocytes # 0.6 Eosinophils # 0.1 Basophils # 0.0 Nucleated Red Blood Cells # 0.0 Sodium Level 135 Potassium Level 3.4 L Chloride Level 96 L Carbon Dioxide Level 29 Anion Gap 13 Blood Urea Nitrogen 35 H Creatinine 1.40 H Glucose Level 84 # Calcium Level 9.2 Medications Medications Current Medications Cholecalciferol (Vitamin D) 1,000 unit DAILY PO Last administered on 07/29/16 09:53; Admin Dose 1,000 UNIT; Start 07/27/16 at 09:00 Aspirin (Halfprin) 81 mg DAILY PO Last administered on 07/29/16 09:53; Admin Dose 81 MG; Start 07/27/16 at 09:00 Docusate Sodium (Colace) 100 mg BID PO Last administered on 07/29/16 09:53; Admin Dose 100 MG; Start 07/26/16 at 21:00 Famotidine (Pepcid) 20 mg DAILY PO Last administered on 07/29/16 09:53; Admin Dose 20 MG; Start 07/27/16 at 09:00 Acetaminophen (Tylenol Tab) 650 mg Q6H PRN PO PAIN AND OR ELEVATED TEMP; Start 07/26/16 at 18:30 Enoxaparin Sodium (Lovenox) 40 mg DAILY SC Last administered on 07/29/16 09:54 ; Admin Dose 40 MG; Start 07/27/16 at 09:00 Atorvastatin Calcium (Lipitor) 40 mg DAILY PO Last administered on 07/29/16 09 :53; Admin Dose 40 MG; Start 07/27/16 at 10:00 Hydralazine HCl (Apresoline) 10 mg Q6H PRN IV sbp>160mmhg; Start 07/27/16 at 12 :30 Amlodipine Besylate (Norvasc) 2.5 mg BID PO Last administered on 07/29/16 20: 09; Admin Dose 2.5 MG; Start 07/28/16 at 21:00 SHLOMO ARANDA Jul 30, 2016 07:48
--- NOTE | 2016-07-30 08:36 | RADRPT ---
PROCEDURE: Right upper quadrant ultrasound. CLINICAL INDICATION: Abdominal pain soft tissue swelling. TECHNIQUE: Real time whelan-scale ultrasound imaging of the right upper quadrant COMPARISON: None. FINDINGS: Limited evaluation of the right upper quadrant demonstrates a 22.8 x 10 x 7 cm fluid collection with in or adjacent to the right hepatic lobe of the liver. The liver is normal in size. IMPRESSION: 22.8 x 10 x 7 cm fluid collection adjacent to or within the right hepatic lobe of the liver. Furthe r evaluation with CT is recommended. RPTAT:AAJJ Jose F Parmar Physician Date Time Electronically viewed and signed by Physician Luis on 07/30/2016 08:36 LINDA/
[2016-07-30] MEDS: ASPIRIN (EC) 81 MG TAB PO SCH (09:22)
[2016-07-30] MEDS: ATORVASTATIN 40 MG TAB PO SCH (09:22)
[2016-07-30] MEDS: FAMOTIDINE 20 MG TAB PO SCH (09:22)
[2016-07-30] MEDS: CHOLECALCIFEROL 1,000 UNIT TAB PO SCH (09:23)
[2016-07-30] MEDS: DOCUSATE SODIUM 100 MG CAP PO SCH ×2 (09:23→20:08)
[2016-07-30] MEDS: AMLODIPINE 2.5 MG TAB PO SCH ×2 (09:23→20:08)
[2016-07-30] MEDS: ENOXAPARIN 40 MG/0.4 ML SYG SC SCH (09:26)
[2016-07-30 10:27] LABS: ADD SCAN DIFF NO
[2016-07-30] MEDS ORDERED: POTASSIUM CHLORIDE (SR) 20 MEQ TAB PO STA (10:32)
[2016-07-30 10:34] LABS: BASOPHILS % 0.5 % (0.0-2.0); EOSINOPHILS # 0.1 10^3/ul (0.0-0.5); EOSINOPHILS % 1.4 % (0.0-7.0); HEMATOCRIT 41.1 % (42.0-52.0); HEMOGLOBIN 13.9 g/dl (14.0-18.0); LYMPHOCYTES # 1.4 10^3/ul (0.8-2.9); MEAN CORPUSCULAR HEMOGLOBIN 33.8 pg (29.0-33.0); MEAN CORPUSCULAR HGB CONC 33.8 g/dl (32.0-37.0); MONOCYTE # 0.6 10^3/ul (0.3-0.9); NEUTROPHIL # 3.7 10^3/ul (1.6-7.5); NEUTROPHILS % 63.9 % (39.0-77.0); PLATELET COUNT 219 10^3/UL (140-415); RED BLOOD COUNT 4.11 10^6/ul (4.70-6.10); RED CELL DISTRIBUTION WIDTH 12.2 % (11.5-14.5); WHITE BLOOD COUNT 5.8 10^3/ul (4.8-10.8)
--- NOTE | 2016-07-30 10:52 | CONS ---
DATE OF ADMISSION: 07/26/2016 DATE OF CONSULTATION: 07/30/2016 CARDIAC ELECTROPHYSIOLOGY CONSULTATION HISTORY OF PRESENT ILLNESS: Mr. Samson is a 76-year-old gentleman. He was admitted with an acute CVA, minimal residual. While monitored on telemetry, he was noted to have a 10.2-second pause. He was unaware of the pause, was sleeping at that time. He was on minimal dose of beta isidoro. Curre ntly, he feels well. Denies history of syncope. PAST MEDICAL HISTORY: Coronary artery disease, hypertension, myocardial infarction 2 years ago. PHYSICAL EXAMINATION GENERAL: No distress. VITAL SIGNS: Temperature 97.4, pulse 63, blood pressure 149/74. ABDOMEN: Soft, nontender. EXTREMITIES: No clubbing, cyanosis, or edema. LABORATORY RESULTS: White count 6.6, hematocrit 42.2, platelet count 236. Sodium 135, potassium 3. 4, BUN 35, creatinine 1.4. INR 1.0. ASSESSMENT: Sick sinus syndrome with pause up to 10 seconds. I agree that the patient is a cherrie te for pacemaker placement, and will schedule him as such tomorrow. I explained the procedure in de tail including the risks of bleeding, hematoma and pneumothorax. The patient understands and will w ait until tomorrow for the procedure to be performed. I will replace potassium at this time as well . Dictated By: MELISSA BOYD/ZHANNA Conf#: [id number] DID#: [id number]
[2016-07-30 10:53] LABS: POTASSIUM 3.8 mmol/L (3.5-5.1)
[2016-07-30 10:55] LABS: CREATININE 1.27 mg/dl (0.61-1.24)
[2016-07-30 10:56] LABS: CALCIUM 9.4 mg/dl (8.4-10.2)
[2016-07-31] VITALS (19 sets, daily range): BP systolic 128–182; BP diastolic 66–84; PULSE 50–76; RESP 10–20
[2016-07-31 06:03] LABS: ADD SCAN DIFF NO
[2016-07-31 06:43] LABS: POTASSIUM 3.6 mmol/L (3.5-5.1)
[2016-07-31 06:45] LABS: CREATININE 1.25 mg/dl (0.61-1.24)
[2016-07-31 06:46] LABS: BASOPHIL # 0.1 10^3/ul (0.0-0.1); BASOPHILS % 0.9 % (0.0-2.0); CALCIUM 8.8 mg/dl (8.4-10.2); EOSINOPHILS # 0.1 10^3/ul (0.0-0.5); EOSINOPHILS % 1.8 % (0.0-7.0); HEMATOCRIT 37.8 % (42.0-52.0); LYMPHOCYTES # 1.9 10^3/ul (0.8-2.9); LYMPHOCYTES % 32.6 % (15.0-51.0); MEAN CORPUSCULAR HEMOGLOBIN 34.7 pg (29.0-33.0); MEAN CORPUSCULAR HGB CONC 34.4 g/dl (32.0-37.0); MEAN CORPUSCULAR VOLUME 100.8 fl (82.0-101.0); MEAN PLATELET VOLUME 10.3 fl (7.4-10.4); MONOCYTE # 0.7 10^3/ul (0.3-0.9); MONOCYTES % 12.3 % (0.0-11.0); NEUTROPHILS % 52.2 % (39.0-77.0); PLATELET COUNT 200 10^3/UL (140-415); RED BLOOD COUNT 3.75 10^6/ul (4.70-6.10); RED CELL DISTRIBUTION WIDTH 12.2 % (11.5-14.5); WHITE BLOOD COUNT 5.7 10^3/ul (4.8-10.8)
[2016-07-31] MEDS: ASPIRIN (EC) 81 MG TAB PO SCH (09:00)
[2016-07-31] MEDS: FAMOTIDINE 20 MG TAB PO SCH (09:23)
[2016-07-31] MEDS: DOCUSATE SODIUM 100 MG CAP PO SCH ×2 (09:23→20:51)
[2016-07-31] MEDS: CHOLECALCIFEROL 1,000 UNIT TAB PO SCH (09:23)
[2016-07-31] MEDS: AMLODIPINE 2.5 MG TAB PO SCH ×2 (09:24→20:52)
[2016-07-31] MEDS: ATORVASTATIN 40 MG TAB PO SCH (09:24)
--- NOTE | 2016-07-31 14:56 | CONS ---
Date/Time of Note Date/Time of Note DATE: 07/31/16 TIME: 14:54 Assessment/Plan Assessment/Plan Additional Assessment/Plan Sick sinus syndrome with 10.2 second pause Acute CVA Coronary artery disease Preserved ejection fraction Hypertension -Patient planned for pacemaker today. Would continue to hold any AV jorge blocking agents. Blood pressure remains elevated after procedure, with increased dose of antihypertensive medication regimen. Consultation Date/Type/Reason Admit Date/Time Jul 26, 2016 at 18:07 Initial Consult Date Type of Consultation: cv 24 HR Interval Summary Free Text/Dictation Denies shortness of breath, dizziness or palpitations Exam/Review of Systems Vital Signs Vitals Vital Signs Date Time Temp Pulse Resp B/P Pulse Ox O2 Delivery O2 Flow Rate FiO2 07/31/16 12:36 65 07/31/16 11:21 98.0 18 169/79 96 07/31/16 04:00 Room Air Intake and Output 07/30/16 07/30/16 07/31/16 15:00 23:00 07:00 Intake Total 350 ml 350 ml Balance 350 ml 350 ml Exam No apparent distress Constitutional: alert, oriented Head: normocephalic Neck: supple Respiratory: clear to auscultation, normal air movement Cardiovascular: other (S1-S2 heard), regular rate and rhythm Gastrointestinal: bowel sounds, non-tender, other (No guarding), soft Extremities: other (No edema or cyanosis) Results Result Diagram: 07/31/16 0548 07/31/16 0548 Results 24 hrs Laboratory Tests Test 07/31/16 05:48 White Blood Count 5.7 Red Blood Count 3.75 L Hemoglobin 13.0 L Hematocrit 37.8 L Mean Corpuscular Volume 100.8 Mean Corpuscular Hemoglobin 34.7 H Mean Corpuscular Hemoglobin Concent 34.4 Red Cell Distribution Width 12.2 Platelet Count 200 Mean Platelet Volume 10.3 Neutrophils % 52.2 Lymphocytes % 32.6 Monocytes % 12.3 H Eosinophils % 1.8 Basophils % 0.9 Nucleated Red Blood Cells % 0.0 Neutrophils # 3.0 Lymphocytes # 1.9 Monocytes # 0.7 Eosinophils # 0.1 Basophils # 0.1 Nucleated Red Blood Cells # 0.0 Sodium Level 137 Potassium Level 3.6 Chloride Level 99 Carbon Dioxide Level 29 Anion Gap 13 Blood Urea Nitrogen 32 H Creatinine 1.25 H Glucose Level 103 Calcium Level 8.8 Medications Medications Current Medications Cholecalciferol (Vitamin D) 1,000 unit DAILY PO Last administered on 07/31/16 09:23; Admin Dose 1,000 UNIT; Start 07/27/16 at 09:00 Aspirin (Halfprin) 81 mg DAILY PO Last administered on 07/30/16 09:22; Admin Dose 81 MG; Start 07/27/16 at 09:00 Docusate Sodium (Colace) 100 mg BID PO Last administered on 07/31/16 09:23; Admin Dose 100 MG; Start 07/26/16 at 21:00 Famotidine (Pepcid) 20 mg DAILY PO Last administered on 07/31/16 09:23; Admin Dose 20 MG; Start 07/27/16 at 09:00 Acetaminophen (Tylenol Tab) 650 mg Q6H PRN PO PAIN AND OR ELEVATED TEMP; Start 07/26/16 at 18:30 Enoxaparin Sodium (Lovenox) 40 mg DAILY SC Last administered on 07/30/16 09:26 ; Admin Dose 40 MG; Start 07/27/16 at 09:00; Status Future Hold Atorvastatin Calcium (Lipitor) 40 mg DAILY PO Last administered on 07/31/16 09 :24; Admin Dose 40 MG; Start 07/27/16 at 10:00 Hydralazine HCl (Apresoline) 10 mg Q6H PRN IV sbp>160mmhg; Start 07/27/16 at 12 :30 Amlodipine Besylate (Norvasc) 2.5 mg BID PO Last administered on 07/31/16 09: 24; Admin Dose 2.5 MG; Start 07/28/16 at 21:00 Timothy Thompson DO Jul 31, 2016 14:56
[2016-07-31] MEDS ORDERED: POLYMYXIN/BACITRACIN 1L IRRIG IRR ONE (15:30)
--- NOTE | 2016-07-31 16:36 | PN ---
Date/Time of Note Date/Time of Note DATE: 07/31/16 TIME: 16:34 Assessment/Plan VTE Prophylaxis VTE Prophylaxis Intervention: SCD's Lines/Catheters IV [facility]from [facility] Saline Lock Urinary Cath still in place: No Assessment/Plan Chief Complaint/Hosp Course 1. 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 The patient has no gross focal deficits. 2. Multiple cavernous angiomas of incidental finding. 3. Hypertension with improved control. 4. Chronic normocytic anemia. 5. History of coronary artery disease status post PCI in the past. 6. Severe asymptomatic bradycardia while sleeping with 10.2 sec pause Pacer placement today 7. Abd mass (likely soft tissue vs VALDEMAR) : very concerning to patient Follow-up and CT abdomen PROPHYLAXIS: scds / pepcid Problems: Subjective 24 Hr Interval Summary Constitutional: no complaints Exam/Review of Systems Vital Signs Vitals Vital Signs Date Time Temp Pulse Resp B/P Pulse Ox O2 Delivery O2 Flow Rate FiO2 07/31/16 16:20 70 07/31/16 15:29 98.0 18 146/67 97 07/31/16 04:00 Room Air Intake and Output 07/30/16 07/30/16 07/31/16 15:00 23:00 07:00 Intake Total 350 ml 350 ml Balance 350 ml 350 ml Exam Constitutional: alert, oriented Respiratory: clear to auscultation Cardiovascular: regular rate and rhythm Gastrointestinal: soft, No distended Musculoskeletal: nl extremities to inspection Results Result Diagram: 07/31/16 0548 07/31/16 0548 Results 24 hrs Laboratory Tests Test 07/31/16 05:48 White Blood Count 5.7 Red Blood Count 3.75 L Hemoglobin 13.0 L Hematocrit 37.8 L Mean Corpuscular Volume 100.8 Mean Corpuscular Hemoglobin 34.7 H Mean Corpuscular Hemoglobin Concent 34.4 Red Cell Distribution Width 12.2 Platelet Count 200 Mean Platelet Volume 10.3 Neutrophils % 52.2 Lymphocytes % 32.6 Monocytes % 12.3 H Eosinophils % 1.8 Basophils % 0.9 Nucleated Red Blood Cells % 0.0 Neutrophils # 3.0 Lymphocytes # 1.9 Monocytes # 0.7 Eosinophils # 0.1 Basophils # 0.1 Nucleated Red Blood Cells # 0.0 Sodium Level 137 Potassium Level 3.6 Chloride Level 99 Carbon Dioxide Level 29 Anion Gap 13 Blood Urea Nitrogen 32 H Creatinine 1.25 H Glucose Level 103 Calcium Level 8.8 Medications Medications Current Medications Cholecalciferol (Vitamin D) 1,000 unit DAILY PO Last administered on 07/31/16 09:23; Admin Dose 1,000 UNIT; Start 07/27/16 at 09:00 Aspirin (Halfprin) 81 mg DAILY PO Last administered on 07/30/16 09:22; Admin Dose 81 MG; Start 07/27/16 at 09:00 Docusate Sodium (Colace) 100 mg BID PO Last administered on 07/31/16 09:23; Admin Dose 100 MG; Start 07/26/16 at 21:00 Famotidine (Pepcid) 20 mg DAILY PO Last administered on 07/31/16 09:23; Admin Dose 20 MG; Start 07/27/16 at 09:00 Acetaminophen (Tylenol Tab) 650 mg Q6H PRN PO PAIN AND OR ELEVATED TEMP; Start 07/26/16 at 18:30 Enoxaparin Sodium (Lovenox) 40 mg DAILY SC Last administered on 07/30/16 09:26 ; Admin Dose 40 MG; Start 07/27/16 at 09:00; Status Future Hold Atorvastatin Calcium (Lipitor) 40 mg DAILY PO Last administered on 07/31/16 09 :24; Admin Dose 40 MG; Start 07/27/16 at 10:00 Hydralazine HCl (Apresoline) 10 mg Q6H PRN IV sbp>160mmhg; Start 07/27/16 at 12 :30 Amlodipine Besylate (Norvasc) 2.5 mg BID PO Last administered on 07/31/16 09: 24; Admin Dose 2.5 MG; Start 07/28/16 at 21:00 TONJA NGO Jul 31, 2016 16:36
[2016-07-31] MEDS ORDERED: LIDOCAINE 1% (MDV) 20 ML INJ ONE (16:40)
[2016-07-31] MEDS ORDERED: MIDAZOLAM 1 MG/ML 2 ML INJ ONE ×2 (16:40→16:41)
[2016-07-31] MEDS ORDERED: IODIXANOL LOCM 50 ML BTL ONE ×4 (16:40→18:26)
[2016-07-31] MEDS ORDERED: FENTAnyl 50 MCG/ML VIAL ONE ×2 (16:41)
[2016-07-31] MEDS ORDERED: SOD CHLORIDE 0.9% 500 ML ONE ×2 (18:24→18:27)
[2016-07-31] MEDS ORDERED: HYDROCODONE/APAP (5/325) TAB PO PRN ×2 (19:00)
[2016-07-31] MEDS: CEFAZOLIN 1 GM/50 ML (PMX) 50 ML IVPB SCH (20:52)
--- NOTE | 2016-07-31 21:11 | RADRPT ---
PROCEDURE: XR, Chest. CLINICAL INDICATION: After insertion of left pacemaker wires/leads. TECHNIQUE: AP chest. COMPARISON: Chest, 07/26/2016. FINDINGS: The left bipolar pacemaker wires/leads remain in good position. No pneumothorax seen. The heart re laura somewhat enlarged. There is no acute infiltrate in the lungs. No pleural effusion. IMPRESSION: 1. Borderline cardiomegaly. 2. Left bipolar pacemaker wires/leads in place. No pneumothorax seen. RPTAT: GG .Mikey Benitez MD, MD Date Time Electronically viewed and signed by .Mikey Benitez MD, MD on 07/31/2016 21:11 .Y/
--- NOTE | 2016-07-31 23:10 | OPR ---
DATE OF OPERATION: 07/31/2016 PREOPERATIVE DIAGNOSIS: Sick sinus syndrome. The patient with 10-second pause on telemetry while m onitored. POSTOPERATIVE DIAGNOSIS: Sick sinus syndrome. The patient with 10-second pause on telemetry while monitored. PROCEDURE PERFORMED: Dual chamber pacemaker implantation. SURGEON: Daniele Marino MD DESCRIPTION OF PROCEDURE: The patient was brought to the catheterization laboratory in fasting stat e. Informed consent was signed for the procedure and sedation. The patient received antibiotic gee or to skin incision. Left pectoral region prepped and draped in the usual fashion. Lidocaine 1% was used to infuse the skin beneath the left clavicle. A 3 cm incision using a #15 scalpel blade was made and, using combination of blunt dissection and el ectrocautery, the tissue was dissected to the pectoral fascia where a pacemaker pocket was formed. Hemostasis was achieved. Two venous accesses were obtained after venogram using the axillary portion and fluoroscopic guidanc e. A 6-Gabonese sheath was advanced to the left subclavian vein through which an RV pace sense lead was p laced on the lower RV septum where excellent pacing and sensing characteristics were confirmed. Yany d was screwed into place and the lead was sutured to the fascia using 0 silk and nonresorbable sutur es. A second 6-Gabonese peel away sheath was placed in the subclavian vein, through which an atrial lead w as placed at the atrial appendage and screwed into place. The sheath was split, the lead was sutured to the fascia using 0 silk and nonresorbable sutures. The leads were placed in the pacemaker and pacing characteristics were again confirmed. The pacemak er was sutured to the pectoral fascia using 0 silk nonresorbable sutures. The pocket was irrigated with antibiotic solution. The pocket was closed in layers using 2-0 and 4-0 resorbable sutures. Surgical adhesive was applied to the skin. STUDENT COUNSELLOR DATA: [employer] [id number], serial #[id number]. Dictated By: DANIELE BOYD/ZHANNA Conf#: [id number] DID#: [id number] CC: GARRY ESPINOZA MD;*EndCC*
--- NOTE | 2016-07-31 23:28 | RADRPT ---
PROCEDURE: CT abdomen and pelvis without contrast. CLINICAL INDICATION: Abdominal pain. Abnormal ultrasound showing fluid collection adjacent to the liver TECHNIQUE: CT scan of the abdomen and pelvis without contrast was performed. Sagittal and coronal reformatted images were obtained from the axial source images. CTDI = 13.42 mGy; DLP = 714.51 mGy-c m COMPARISON: Ultrasound 07/29/2016 FINDINGS: Visualized lower thorax: Dependent subsegmental atelectasis of the right greater than left lower lo be is present. The visualized heart shows a cardiac pacemaker. There is no evidence for pleural ef fusion. Liver, gallbladder, pancreas and spleen: The liver is normal and size, contour and attenuation. Th ere is no evidence for a liver mass or ductal dilatation, a tiny hypodensity within the right hepati c dome is most likely a cyst or hemangioma, too small to characterize. A punctate calcification in the center of the right hepatic lobe is likely a granuloma. The gallbladder is unremarkable. No co mmon bile duct abnormality is demonstrated. The pancreas is unremarkable. The spleen is normal in size. Adrenal glands and genitourinary system: The adrenal glands are normal bilaterally. There is striki ng finding is the right kidney, the fluid collection of concern on the ultrasound is related to alyssa re right-sided hydronephrosis with extreme thinning of the right renal cortex and probable calcifica tion of the renal parenchyma, the dilated renal pelvis approximately 16 cm. There is no contrast me tolu within the right renal collecting system as it is within the left kidney. No left renal hydrone phrosis is present. Contrast is seen within the left ureter, the right ureter is not dilated, the p attern therefore most suggestive of severe ureteropelvic junction obstruction. Contrast media is pre sent within the urinary bladder without wall thickening or mass lesion. The prostate gland is luna l in size. Gastrointestinal system: The stomach is normal in caliber with no abnormality of significance. The small bowel is normal in caliber with no ileus, obstruction or wall thickening. The appendix and s urrounding fat are within the limits of normal. The colon shows no evidence for wall thickening or acute abnormality. There is no evidence for colitis or diverticulitis. Peritoneum, retroperitoneum, lymph nodes and vessels: The abdominal aorta is normal in caliber. The re is moderate aortic and iliac system atherosclerotic calcification. The inferior vena cava is unr emarkable. There is no evidence for adenopathy or mass. There is no ascites. Osseous structures and musculoskeletal findings: There is no fracture, lytic or blastic lesion. Fa cet arthropathy and grade 1 anterolisthesis with central canal stenosis at L4-5 is present No muscul ar abnormality or soft tissue pathology is present. RPTAT:HJJR IMPRESSION: 1. The suspected perihepatic collection on the ultrasound of 07/29/2016 corresponds to a massively dilated right renal collecting system believed to be related to right ureteropelvic junction obstruc tion, longstanding, as there is extreme thinning of the right renal cortex with parenchymal calcific ations. 2. Residual contrast media of uncertain etiology and the normal left renal collecting system, left ureter and urinary bladder. 3. Tiny hypodensity in the right hepatic lobe too small to characterize likely a cyst or hemangioma with punctate granulomas calcification of the center of the right liver. 4. Aortic atherosclerosis is present. 5. Degenerative anterolisthesis of central canal stenosis at L4-5. 6. Cardiac pacemaker Physician Kala Date Time Electronically viewed and signed by Physician Kala on 07/31/2016 23:28 /
[2016-08-01] VITALS (13 sets, daily range): BP systolic 121–183; BP diastolic 74–89; PULSE 68–90; RESP 16–20
[2016-08-01] MEDS: CEFAZOLIN 1 GM/50 ML (PMX) 50 ML IVPB SCH (04:51)
[2016-08-01 06:55] LABS: ADD SCAN DIFF NO
[2016-08-01 06:58] LABS: BASOPHILS % 0.5 % (0.0-2.0); EOSINOPHILS % 0.5 % (0.0-7.0); HEMATOCRIT 37.7 % (42.0-52.0); HEMOGLOBIN 12.9 g/dl (14.0-18.0); LYMPHOCYTES # 1.9 10^3/ul (0.8-2.9); LYMPHOCYTES % 23.6 % (15.0-51.0); MEAN CORPUSCULAR HGB CONC 34.2 g/dl (32.0-37.0); MEAN CORPUSCULAR VOLUME 99.5 fl (82.0-101.0); MEAN PLATELET VOLUME 10.3 fl (7.4-10.4); MONOCYTE # 0.8 10^3/ul (0.3-0.9); MONOCYTES % 9.7 % (0.0-11.0); NEUTROPHIL # 5.3 10^3/ul (1.6-7.5); NEUTROPHILS % 65.6 % (39.0-77.0); PLATELET COUNT 193 10^3/UL (140-415); RED BLOOD COUNT 3.79 10^6/ul (4.70-6.10); WHITE BLOOD COUNT 8.1 10^3/ul (4.8-10.8)
[2016-08-01 07:53] LABS: POTASSIUM 3.6 mmol/L (3.5-5.1)
[2016-08-01 07:56] LABS: CREATININE 1.12 mg/dl (0.61-1.24)
[2016-08-01 07:57] LABS: CALCIUM 8.6 mg/dl (8.4-10.2)
[2016-08-01] MEDS: FAMOTIDINE 20 MG TAB PO SCH (09:42)
[2016-08-01] MEDS: DOCUSATE SODIUM 100 MG CAP PO SCH (09:42)
[2016-08-01] MEDS: CHOLECALCIFEROL 1,000 UNIT TAB PO SCH (09:42)
[2016-08-01] MEDS: ASPIRIN (EC) 81 MG TAB PO SCH (09:42)
[2016-08-01] MEDS: ATORVASTATIN 40 MG TAB PO SCH (09:42)
[2016-08-01] MEDS: AMLODIPINE 2.5 MG TAB PO SCH ×2 (09:43→19:52)
[2016-08-01] MEDS: hydrALAzine 20 MG INJ IV PRN ×2 (15:27→19:52)
--- NOTE | 2016-08-01 16:32 | CONS ---
Date/Time of Note Date/Time of Note DATE: 08/01/16 TIME: 16:30 Assessment/Plan Assessment/Plan Additional Assessment/Plan Sick sinus syndrome status post pacemaker Acute CVA Coronary artery disease Preserved ejection fraction Hypertension Pacemaker mediated tachycardia -Patient with episode of pacemaker mediated tachycardia noted on telemetry. Pacemaker was interrogated and adjustments were made. Doing well postoperatively. Okay for discharge with outpatient cardiology follow-up. Discussed with patient regarding activity limitations, wearing a sling, not lifting left arm higher than shoulder level for minimum of 4 weeks. Consultation Date/Type/Reason Admit Date/Time Jul 26, 2016 at 18:07 Type of Consultation: cv 24 HR Interval Summary Free Text/Dictation Patient status post pacemaker. Doing well, denies dizziness, chest pain or palpitations Exam/Review of Systems Vital Signs Vitals Vital Signs Date Time Temp Pulse Resp B/P Pulse Ox O2 Delivery O2 Flow Rate FiO2 08/01/16 16:02 69 08/01/16 15:03 97.8 18 165/74 97 07/31/16 19:04 Room Air Intake and Output 07/31/16 07/31/16 08/01/16 15:00 23:00 07:00 Intake Total 350 ml Output Total 400 ml Balance -400 ml 350 ml Exam No apparent distress Constitutional: alert, oriented Head: normocephalic Neck: supple Respiratory: clear to auscultation, normal air movement Cardiovascular: other (S1-S2 heard), regular rate and rhythm Gastrointestinal: bowel sounds, non-tender, soft Musculoskeletal: other (Left chest wall pacemaker site clean, no erythema, no drainage) Extremities: other (No edema or cyanosis) Results Result Diagram: 08/01/16 0616 08/01/16 0616 Results 24 hrs Laboratory Tests Test 08/01/16 06:16 White Blood Count 8.1 # Red Blood Count 3.79 L Hemoglobin 12.9 L Hematocrit 37.7 L Mean Corpuscular Volume 99.5 Mean Corpuscular Hemoglobin 34.0 H Mean Corpuscular Hemoglobin Concent 34.2 Red Cell Distribution Width 12.0 Platelet Count 193 Mean Platelet Volume 10.3 Neutrophils % 65.6 Lymphocytes % 23.6 Monocytes % 9.7 Eosinophils % 0.5 Basophils % 0.5 Nucleated Red Blood Cells % 0.0 Neutrophils # 5.3 Lymphocytes # 1.9 Monocytes # 0.8 Eosinophils # 0.0 Basophils # 0.0 Nucleated Red Blood Cells # 0.0 Sodium Level 137 Potassium Level 3.6 Chloride Level 103 Carbon Dioxide Level 27 Anion Gap 11 Blood Urea Nitrogen 26 H Creatinine 1.12 Glucose Level 98 Calcium Level 8.6 Medications Medications Current Medications Cholecalciferol (Vitamin D) 1,000 unit DAILY PO Last administered on 08/01/16 09:42; Admin Dose 1,000 UNIT; Start 07/27/16 at 09:00 Aspirin (Halfprin) 81 mg DAILY PO Last administered on 08/01/16 09:42; Admin Dose 81 MG; Start 07/27/16 at 09:00 Docusate Sodium (Colace) 100 mg BID PO Last administered on 08/01/16 09:42; Admin Dose 100 MG; Start 07/26/16 at 21:00 Famotidine (Pepcid) 20 mg DAILY PO Last administered on 08/01/16 09:42; Admin Dose 20 MG; Start 07/27/16 at 09:00 Acetaminophen (Tylenol Tab) 650 mg Q6H PRN PO PAIN AND OR ELEVATED TEMP; Start 07/26/16 at 18:30 Enoxaparin Sodium (Lovenox) 40 mg DAILY SC Last administered on 07/30/16 09:26 ; Admin Dose 40 MG; Start 07/27/16 at 09:00; Status Future Hold Atorvastatin Calcium (Lipitor) 40 mg DAILY PO Last administered on 08/01/16 09 :42; Admin Dose 40 MG; Start 07/27/16 at 10:00 Hydralazine HCl (Apresoline) 10 mg Q6H PRN IV sbp>160mmhg Last administered on 08/01/16 15:27; Admin Dose 10 MG; Start 07/27/16 at 12:30 Amlodipine Besylate (Norvasc) 2.5 mg BID PO Last administered on 08/01/16 09: 43; Admin Dose 2.5 MG; Start 07/28/16 at 21:00 Acetaminophen/ Hydrocodone Bitart (Mentcle (5/325)) 1 tab Q4H PRN PO PAIN LEVEL 6 -10; Start 07/31/16 at 19:00 Acetaminophen/ Hydrocodone Bitart (Mentcle (5/325)) 2 tab Q4H PRN PO PAIN LEVEL 6 -10; Start 07/31/16 at 19:00 Timothy Thompson DO Aug 01, 2016 16:31
--- NOTE | 2016-08-01 21:34 | DS ---
DATE OF ADMISSION: 07/26/2016 DATE OF DISCHARGE: 08/01/2016 DISCHARGE DIAGNOSES: 1. 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 2. Severe asymptomatic bradycardia status post pacemaker placement during this hospitalization. 3. Abdominal mass. Workup shows mass to be a longstanding ureteropelvic obstruction and there was also a tiny hypodensity in the right hepatic lobe, likely a cyst or hemangioma. This is likely assorter jose, as well. 4. History of coronary artery disease, status post percutaneous coronary intervention in the past, stable. 5. Hypertension, stable. 6. Anemia of chronic disease. HOSPITAL COURSE: The patient is a 76-year-old male with history of coronary artery disease, history of myocardial infarction, status post percutaneous coronary intervention in the past, hypertension, and patient presented with slurred speech, right-sided weakness. The patient had a brain MRI that showed a 9 mm focus of restricted diffusion within the left paramedian augie compatible with acute ea rly subacute ischemic infarction. There were also findings of multiple cavernous angiomas which wer e incidentally found. There were chronic microvascular ischemic changes in the deep white matter. The patient had a carotid Doppler study that showed mild bilateral carotid bulb plaque without evide nce of significant stenosis. The patient was seen by neurology, was on aspirin and statin. The pat ient was seen by cardiology for symptomatic bradycardia. The patient did have a pacemaker placed as patient did have sick sinus syndrome with a 10-second pause on telemetry. The patient was felt to be cleared for discharge. On the day of discharge, the patient's vitals, labs, physical exam were s table. He had no acute complaints. Questions were answered. CONDITION ON DISCHARGE: Stable. DISPOSITION: To home. MEDICATIONS: The patient is to continue his vitamin D3. He was given new prescriptions for aspirin 81 daily, Lipitor 40 daily, Colace 100 b.i.d., 25 daily, losartan 100 daily, metoprolol 25 b. i.d. The patient was to stop his Coreg 6.25 and his losartan 50 daily. FOLLOWUP: The patient is to follow up with his PCP in 1 to 2 weeks. Greater than 30 minutes was spent coordinating discharge of this patient. Dictated By: TONJA NGO MD BS/NTS Conf#: [id number] [facility]#: [id number]
== END 2016-08-01 20:30 | disposition home or self-care (01) | DRG 42 ==
LOC: E/R 11:26 → TEL 18:07
PROVIDERS: ADMIT Internal Medicine; ATTEND Internal Medicine
PROC: 0JH606Z Insertion of Pacemaker, Dual Chamber into Chest Subcutaneous Tissue and Fascia, Open Approach (ICD-10-PCS; principal; 2016-07-31 17:00)
PROC: 02HK3JZ Insertion of Pacemaker Lead into Right Ventricle, Percutaneous Approach (ICD-10-PCS; 2016-07-31 17:00)
DX: I62.9 Nontraumatic intracranial hemorrhage, unspecified (principal); I49.5 Sick sinus syndrome; R00.1 Bradycardia, unspecified; D63.8 Anemia in other chronic diseases classified elsewhere; I10 Essential (primary) hypertension; I25.2 Old myocardial infarction; D18.00 Hemangioma unspecified site; I25.10 Atherosclerotic heart disease of native coronary artery without angina pectoris; D18.09 Hemangioma of other sites
CPT/HCPCS: 36415; 70450; 70551; 71010; 74176; 76536; 80048; 80053; 80061; 80307; 81003; 82550; 82553; 82607; 82962; 83036; 83735; 84100; 84443; 84484; 85025; 85610; 85730; 92610; 93005; 93306; 93880; 97161; C1785; C1898; C2629; J0360; J0690; J1650; J2250; J3010; J7030; J7040; Q9967

== ENCOUNTER 2017-04-27 12:27 | Emergency (ER) | payer MEDICARE, MEDICAID ==
[~2017-04-27] VITALS: Wt 74.6 kg
[~2017-04-27 12:27] MED LIST changes: +ASPI-664 PO; +ATOR40TA68 PO; -AZIT250T94 PO; +CHOL10009 PO; -D-ME473S18 PO; +DOCU-216 PO; +HYDR25TA6 PO; -IBUP-1542 PO; +LOSA100T7 PO; +METO-448 PO; -[UNRECOGNIZED DRUG - REMARK]
--- NOTE | 2017-04-27 13:14 | ERD ---
ER Documentation Chief Complaint Chief Complaint DIZZINESS, ONSET TODAY, NO HEADACHE, NO N/V, HPI 76-year-old man states he felt dizzy today for most of the morning, he drank 3 cups of coffee but denies drinking much water or other fluids. He denies loss of consciousness, no headache, no blurry vision, no weakness in his arms or legs , no slurred speech. He states while in the emergency department waiting room his symptoms did improve. ROS All systems reviewed and are negative except as per history of present illness. Medications Home Meds Active Scripts Losartan Potassium* (Losartan Potassium*) 100 Mg Tablet, 100 MG PO DAILY for 30 Days, #2 TAB Prov:ROSILETTY [facility]arroFORMERLY [facility] 07/27/16 Hydrochlorothiazide* (Hydrochlorothiazide*) 25 Mg Tab, 25 MG PO DAILY for 30 Days, TAB 2 Refills Prov:[facility] [place] 07/27/16 Docusate Sodium (Dok) 100 Mg Capsule, 100 MG PO BID for 30 Days, CAP stop if having diarrhea Prov:[facility]ILETTYFORMERLY [facility]. 07/27/16 Atorvastatin* (Atorvastatin*) 40 Mg Tablet, 40 MG PO DAILY for 30 Days, TAB 2 Refills Prov:[facility] [place]. 07/27/16 Aspirin* (Aspirin* EC) 81 Mg Tablet.dr, 81 MG PO DAILY for 30 Days, 2 Refills Prov:[facility]ILETTYFORMERLY [facility]. 07/27/16 Reported Medications Propranolol Hcl* (Propranolol Hcl*) 20 Mg Tablet, 20 MG PO TID, TAB 04/27/17 Cholecalciferol (Vitamin D3) 1,000 Unit Capsule, 1000 UNIT PO DAILY, CAP 07/26/16 Discontinued Scripts Metoprolol Tartrate* (Lopressor*) 25 Mg Tab, 25 MG PO BID for 30 Days, TAB 2 Refills Prov:[facility]ILETTYFORMERLY [facility]. 07/27/16 Allergies Allergies: Coded Allergies: No Known Drug Allergies (Verified Allergy, Unknown, 04/27/17) PMhx/Soc hypertension, CAD, NSTEMI s/p PCI in 2013, CAD, stroke without residual deficits , pacemaker placement for prior bradycardia History of Surgery: Yes (HERNIA REPAIR 2O YRS AGO) Anesthesia Reaction: No Hx Neurological Disorder: No Hx Respiratory Disorders: No Hx Cardiac Disorders: Yes (HTN , CAD) Hx Psychiatric Problems: No Hx Miscellaneous Medical Probl: Yes (HTN, CAD, NSTEM, PCI) Hx Alcohol Use: No Hx Substance Use: No Hx Tobacco Use: Yes (STOP 38 YRS AGO) FmHx Family History: No diabetes Physical Exam Vitals Vital Signs Date Time Temp Pulse Resp B/P Pulse Ox O2 Delivery O2 Flow Rate FiO2 04/27/17 16:20 98.3 72 20 157/87 100 Room Air 04/27/17 14:57 61 12 156/101 100 Room Air 04/27/17 13:30 96.2 61 18 163/95 100 Room Air 04/27/17 12:30 96.2 61 18 181/97 98 Physical Exam GENERAL: Well-developed, well-nourished, appears dehydrated, afebrile, in no apparent distress, looks nontoxic in appearance HEENT: Dry mucous membranes, pink conjunctiva, no cervical spine tenderness or step-off deformities, no goiter, no jaundice or icterus, extraocular movements intact without pain. No submandibular induration, and no pharyngeal erythema NEURO: Alert and oriented 3, cranial nerves II through XII intact bilaterally, pupils equal round reactive to light, no focal deficits or facial asymmetry, sensation intact distally Strength 5/5 in upper and lower extremities bilaterally CARDIAC: Regular rate and rhythm, no murmurs rubs or gallops LUNGS: Clear bilaterally no wheezing crackles or stridor ABDOMEN: Soft nontender, no guarding, no rigidity, no rebound, no psoas sign no obturator sign. Normoactive bowel sounds SKIN: Warm and dry to touch, no abrasions, contusions, or hematomas, no lacerations, no ecchymosis, no target lesions, and without ulcers EXTREMITIES: No clubbing cyanosis or edema, calves are bilaterally symmetrical, no Homans sign, no popliteal cord sign. Distal pulses equal and bilateral PSYCH: Normal affect without agitation or irritability Result Diagram: 04/27/17 1353 04/27/17 1353 Results 24 hrs Laboratory Tests Test 04/27/17 13:52 04/27/17 13:53 Urine Color STRAW Urine Clarity CLEAR Urine pH 7.0 Urine Specific [place] 1.005 Urine Ketones NEGATIVEmg/dL Urine Nitrite NEGATIVEmg/dL Urine Bilirubin NEGATIVEmg/dL Urine Urobilinogen NEGATIVEmg/dL Urine Leukocyte Esterase NEGATIVELeu/ul Urine Microscopic RBC 1/HPF Urine Microscopic WBC 0/HPF Urine Hemoglobin 1+mg/dL Urine Glucose NEGATIVEmg/dL Urine Total Protein NEGATIVEmg/dl White Blood Count 11.210^3/ul Red Blood Count 4.0210^6/ul Hemoglobin 13.6g/dl Hematocrit 40.4% Mean Corpuscular Volume 100.5fl Mean Corpuscular Hemoglobin 33.8pg Mean Corpuscular Hemoglobin Concent 33.7g/dl Red Cell Distribution Width 12.0% Platelet Count 76807^3/UL Mean Platelet Volume 9.3fl Neutrophils % 78.1% Lymphocytes % 13.1% Monocytes % 5.9% Eosinophils % 2.2% Basophils % 0.4% Nucleated Red Blood Cells % 0.0/100WBC Neutrophils # 8.710^3/ul Lymphocytes # 1.510^3/ul Monocytes # 0.710^3/ul Eosinophils # 0.310^3/ul Basophils # 0.110^3/ul Nucleated Red Blood Cells # 0.010^3/ul Prothrombin Time 12.8Sec Prothrombin Time Ratio 1.0 INR International Normalized Ratio 0.95 Sodium Level 136mmol/L Potassium Level 3.9mmol/L Chloride Level 98mmol/L Carbon Dioxide Level 29mmol/L Anion Gap 13 Blood Urea Nitrogen 24mg/dl Creatinine 1.20mg/dl Glucose Level 107mg/dl Calcium Level 8.9mg/dl Total Bilirubin 1.0mg/dl Direct Bilirubin 0.00mg/dl Indirect Bilirubin 1.0mg/dl Aspartate Amino Transf (AST/SGOT) 39IU/L Alanine Aminotransferase (ALT/SGPT) 56IU/L Alkaline Phosphatase 106IU/L Troponin I < 0.012ng/ml Total Protein 7.8g/dl Albumin 4.0g/dl Globulin 3.80g/dl Albumin/Globulin Ratio 1.05 Lipase 81U/L Current Medications Medications (Trade) Dose Ordered Sig/Aníbal Route PRN Reason Start Time Stop Time Status Last Admin Dose Admin Sodium Chloride 1,000 ml @ 2,000 mls/hr Q30M STAT IV 04/27/17 13:19 04/27/17 13:48 DC 04/27/17 13:55 Sodium Chloride (NS) 1,000 ml @ 1,000 mls/hr Q1H ONCE IV 04/27/17 15:30 04/27/17 16:24 DC 04/27/17 15:29 Procedures/MDM IV line was established patient was placed on traffic monitor specialist rhythm strip revealed a sinus rhythm at about 80 bpm with upright P and T waves. Patient was afebrile I reviewed recent MRI brain 07/26/2016, IMPRESSION: 1. 9 mm focus of restricted diffusion within the left paramedian augie compatible with acute / early subacute ischemic infarction. No significant mass effect, edema, or hemorrhagic transformation. 2. Multiple sub centimeter foci of signal loss on gradient echo and T2- weighted sequences and augie, midbrain, left external capsule, and bilateral thalami and basal ganglia suggestive of multiple cavernous angiomas. 3. Moderate chronic microvascular ischemic changes in the deep white matter central cerebral and cerebellar volume loss. I administered 2 L normal saline intravenously for dehydration and complaints of dizziness. CBC and electrolytes were normal, liver function tests were normal, troponin was negative. Urine analysis was negative for infection. EKG performed, read by me revealed a paced atrial rhythm at 62 bpm minute pacing spikes noted in lead II, normal axis, narrow QRS complex, first-degree AV block at 216 ms, no concerning ST elevations or depressions noted. Patient symptoms improved after IV fluid therapy, he had no orthostatic vital sign changes, no complaints of dizziness. Neurologic exam was repeated by me and remained normal. Differential diagnoses considered, included but not limited to acute coronary syndrome, pulmonary embolism, aortic dissection, abdominal aortic aneurysm, sepsis, stroke, meningitis, encephalitis, pneumonia, appendicitis, cholecystitis , bowel obstruction, pyelonephritis, nephrolithiasis, cystitis, as well as metabolic, hematologic, and electrolyte abnormalities. As well as abscess, cellulitis, fractures, and dislocations. Patient feels much better at this time, and vital signs are normal, symptoms have improved. I did give strict instructions to return to the ED if symptoms continue or worsen, patient will otherwise follow-up with primary care physician. Patient understood instructions and agreed to plan. Disclaimer: Inadvertent spelling and grammatical errors are likely due to EHR/ dictation software use and do not reflect on the overall quality of patient care. Also, please note that the electronic time recorded on this note does not necessarily reflect the actual time of the patient encounter. Departure Diagnosis: Primary Impression: Dizziness Additional Impression: Dehydration Condition: Good SURENDRA MOSQUERA MD Apr 27, 2017 13:14
[2017-04-27] MEDS ORDERED: SOD CHLORIDE 0.9% 1,000 ML IV STA (13:19)
[2017-04-27 14:03] LABS: BASOPHIL # 0.1 10^3/ul (0.0-0.1); BASOPHILS % 0.4 % (0.0-2.0); EOSINOPHILS # 0.3 10^3/ul (0.0-0.5); EOSINOPHILS % 2.2 % (0.0-7.0); HEMATOCRIT 40.4 % (42.0-52.0); HEMOGLOBIN 13.6 g/dl (14.0-18.0); LYMPHOCYTES # 1.5 10^3/ul (0.8-2.9); LYMPHOCYTES % 13.1 % (15.0-51.0); MEAN CORPUSCULAR HEMOGLOBIN 33.8 pg (29.0-33.0); MEAN CORPUSCULAR HGB CONC 33.7 g/dl (32.0-37.0); MEAN CORPUSCULAR VOLUME 100.5 fl (82.0-101.0); MEAN PLATELET VOLUME 9.3 fl (7.4-10.4); MONOCYTE # 0.7 10^3/ul (0.3-0.9); MONOCYTES % 5.9 % (0.0-11.0); NEUTROPHIL # 8.7 10^3/ul (1.6-7.5); NEUTROPHILS % 78.1 % (39.0-77.0); PLATELET COUNT 218 10^3/UL (140-415); RED BLOOD COUNT 4.02 10^6/ul (4.70-6.10); WHITE BLOOD COUNT 11.2 10^3/ul (4.8-10.8)
[2017-04-27] MEDS ORDERED: PROP20TA4 PO (14:11)
[2017-04-27 14:23] LABS: INR 0.95; PROTIME 12.8 Sec (11.9-14.9)
[2017-04-27 14:30] LABS: ALANINE AMINOTRANSFERASE 56 IU/L (13-69); ALBUMIN/GLOBULIN RATIO 1.05; ALKALINE PHOSPHATASE 106 IU/L (42-121); ANION GAP 13 (8-16); ASPARTATE AMINO TRANSFERASE 39 IU/L (15-46); BLOOD UREA NITROGEN 24 mg/dl (7-20); CALCIUM 8.9 mg/dl (8.4-10.2); CARBON DIOXIDE 29 mmol/L (21-31); CHLORIDE 98 mmol/L (97-110); GLUCOSE 107 mg/dl (70-220); POTASSIUM 3.9 mmol/L (3.5-5.1); SODIUM 136 mmol/L (135-144); TOTAL PROTEIN 7.8 g/dl (6.1-8.1)
[2017-04-27 14:40] LABS: TROPONIN-I < 0.012 ng/ml (0.00-0.12)
[2017-04-27] MEDS ORDERED: SOD CHLORIDE 0.9% 1,000 ML IV ONE (15:30)
[2017-04-27 15:45] LABS: ADD UMIC YES; UR ASCORBIC ACID NEGATIVE (NEGATIVE); UR BILIRUBIN (Dip) NEGATIVE (NEGATIVE); UR BLOOD (Dip) 1+ mg/dL (NEGATIVE); UR CLARITY CLEAR (CLEAR); UR COLOR STRAW (YELLOW); UR GLUCOSE (Dip) NEGATIVE (NEGATIVE); UR KETONES (Dip) NEGATIVE (NEGATIVE); UR LEUKOCYTE ESTERASE (Dip) NEGATIVE Leu/ul (NEGATIVE); UR NITRITE (Dip) NEGATIVE (NEGATIVE); UR RBC 1 /HPF (0-5); UR SPECIFIC GRAVITY (Dip) 1.005 (1.003-1.030); UR TOTAL PROTEIN (Dip) NEGATIVE (NEGATIVE); UR UROBILINOGEN (Dip) NEGATIVE (NEGATIVE)
[2017-04-27 16:20] VITALS: BP 157/87; PULSE 72; RESP 20; TEMP 98.3
== END 2017-04-27 16:24 | disposition home or self-care (01) ==
LOC: E/R 12:27
DX: R42 Dizziness and giddiness (principal); E86.0 Dehydration; I10 Essential (primary) hypertension; I25.10 Atherosclerotic heart disease of native coronary artery without angina pectoris; Z79.82 Long term (current) use of aspirin; Z87.891 Personal history of nicotine dependence; Z95.0 Presence of cardiac pacemaker
CPT/HCPCS: 36415; 80053; 81001; 83690; 84484; 85025; 85610; 99284; J7030; 93005

== ENCOUNTER 2017-04-30 09:43 | Emergency (ER) | payer MEDICARE, MEDICAID ==
[~2017-04-30] VITALS: Ht 167.6 cm; Wt 73.0 kg
[~2017-04-30 09:43] MED LIST changes: -METO-448 PO; +PROP20TA4 PO
[2017-04-30 09:49] VITALS: Ht 167.6 cm; Wt 73.0 kg
[2017-04-30] MEDS ORDERED: CLIN-73 PO (12:02)
[2017-04-30] MEDS ORDERED: IBUP400T22 PO (12:03)
[2017-04-30] MEDS ORDERED: HYDR-906 PO (12:04)
[2017-04-30 12:24] VITALS: BP 132/75; PULSE 68; RESP 18; TEMP 98.1
--- NOTE | 2017-04-30 13:36 | ERD ---
ER Documentation Chief Complaint Chief Complaint swelling on lt cheek , tooth pain HPI This is a 76-year-old male that presents to the ER with upper left-sided tooth pain and swelling of his cheek. He denies any fevers or chills. He denies any facial pain, facial weakness or upper or lower extremity weakness. Patient denies any urinary problems he denies any nausea vomiting or diarrhea. He denies any dysphagia, chest pain, shortness of breath. ROS 12 point review of systems was done, all negative except per HPI. Medications Home Meds Active Scripts Hydrocodone/Acetaminophen (Tiger 5-325 Tablet) 1 Each Tablet, 1 TAB PO Q6H Y for PAIN, #10 TAB Prov:CAROLINE NIEVES 04/30/17 Ibuprofen* (Motrin*) 400 Mg Tab, 400 MG PO Q6, #30 TAB Prov:CAROLINE NIEVES 04/30/17 Clindamycin Hcl* (Clindamycin Hcl*) 300 Mg Capsule, 300 MG PO TID for 10 Days, CAP Prov:CAROLINE NIEVES 04/30/17 Losartan Potassium* (Losartan Potassium*) 100 Mg Tablet, 100 MG PO DAILY for 30 Days, #2 TAB Prov:SHLOMO ARANDA . 07/27/16 Hydrochlorothiazide* (Hydrochlorothiazide*) 25 Mg Tab, 25 MG PO DAILY for 30 Days, TAB 2 Refills Prov:SHLOMO ARANDA . 07/27/16 Docusate Sodium (Dok) 100 Mg Capsule, 100 MG PO BID for 30 Days, CAP stop if having diarrhea Prov:SHLOMO ARANDA Herbert 07/27/16 Atorvastatin* (Atorvastatin*) 40 Mg Tablet, 40 MG PO DAILY for 30 Days, TAB 2 Refills Prov:SHLOMO ARANDA . 07/27/16 Aspirin* (Aspirin* EC) 81 Mg Tablet.dr, 81 MG PO DAILY for 30 Days, 2 Refills Prov:SHLOMO ARANDA . 07/27/16 Reported Medications Propranolol Hcl* (Propranolol Hcl*) 20 Mg Tablet, 20 MG PO TID, TAB 04/27/17 Cholecalciferol (Vitamin D3) 1,000 Unit Capsule, 1000 UNIT PO DAILY, CAP 07/26/16 Discontinued Scripts Metoprolol Tartrate* (Lopressor*) 25 Mg Tab, 25 MG PO BID for 30 Days, TAB 2 Refills Prov:SHLOMO ARANDA 07/27/16 Allergies Allergies: Coded Allergies: No Known Drug Allergies (Verified Allergy, Unknown, 04/27/17) PMhx/Soc History of Surgery: Yes (HERNIA REPAIR 2O YRS AGO, pacemaker) Anesthesia Reaction: No Hx Neurological Disorder: No Hx Respiratory Disorders: No Hx Cardiac Disorders: Yes (HTN , CAD) Hx Psychiatric Problems: No Hx Miscellaneous Medical Probl: Yes (HTN, CAD, NSTEM, PCI, CVA) Hx Alcohol Use: No Hx Substance Use: No Hx Tobacco Use: No (STOP 38 YRS AGO) Smoking Status: Former smoker Physical Exam Vitals Vital Signs Date Time Temp Pulse Resp B/P Pulse Ox O2 Delivery O2 Flow Rate FiO2 04/30/17 12:24 98.1 68 18 132/75 100 Room Air 04/30/17 09:49 97.9 61 18 172/88 100 Physical Exam GENERAL: The patient is well developed and appropriate for usual state of health , in no apparent distress. HEENT: Atraumatic. Conjunctivae are pink. Pupils equal, round, and reactive to light. Extraocular muscles are grossly intact. Bilateral tympanic membranes are clear with no evidence of erythema, effusion or dulling of the light reflex. The oropharynx is clear with no erythema or exudates. Is a dental carry to the left upper jaw, with some swelling of the gum directly above it. There is no pain or tenderness to the bottom of the mouth. No uvular deviation no kissing tonsils CHEST: Clear to auscultation bilaterally. There are no rales, wheezes or rhonchi. HEART: Regular rate and rhythm. No murmurs, clicks, rubs or gallops. EXTREMITIES:. Full range of motion, normal strength .grossly neurovascularly intact. NEURO: Alert and oriented. Cranial nerves II through XII are intact. Motor strength in all 4 extremities with 5/5 strength. Sensation grossly intact. Normal speech and gait. SKIN: There is no apparent rash or petechia. The skin is warm and dry. Procedures/MDM This Is a 76-year-old male presents to the ER with dental pain and swelling of his cheek. Patient does appear to have a dental abscess. He will be sent home with clindamycin. Suspicion for Moreno angina is low. Suspicion for deep Venous thrombosis is low. I reviewed his old medical records and since he had a CVA in July, a full neuro examination was done, patient neuro examination was done, and it was completely normal. Follow-up with his primary care doctor within 1-2 days or return to ER sooner if symptoms worsen. My medical decision making was shared with the patient and his partner they understand and agree with plan. Departure Diagnosis: Primary Impression: Dental abscess Condition: Stable Patient Instructions: Dental Abscess Additional Instructions: Call your primary care doctor TOMORROW for an appointment during the next 1-2 days.See the doctor sooner or return here if your condition worsens before your appointment time. CAROLINE NIEVES Apr 30, 2017 13:36
== END 2017-04-30 12:26 | disposition home or self-care (01) ==
LOC: FTE 09:43
DX: K04.7 Periapical abscess without sinus (principal); I25.10 Atherosclerotic heart disease of native coronary artery without angina pectoris; I10 Essential (primary) hypertension; Z87.891 Personal history of nicotine dependence; Z79.82 Long term (current) use of aspirin; Z95.0 Presence of cardiac pacemaker
CPT/HCPCS: 99283

== ENCOUNTER 2017-11-25 17:22 | Emergency (ER) | END 2017-11-25 20:27 | disposition home or self-care (01) ==